=== PATIENT | female | born 1965 | race Caucasian/White ===

== ENCOUNTER 2025-02-24 13:04 | Inpatient (IN) | payer BC, SELFPAY ==
[2025-02-24] VITALS (13 sets, daily range): BP systolic 102–137; BP diastolic 68–99; BMI 29.9
--- NOTE | 2025-02-24 09:29 | ED.GENMED ---
History of Present Illness
General
Chief Complaint: Breathing Problem
Time Seen by Provider: 02/24/25 09:02
History of Present Illness
History of Present Illness:
60-year-old female presents to the emergency department for evaluation of exertional shortness of breath occurring on 2 separate occasions this morning. States she was simply walking down the hough in her home when the symptoms began. No associated
chest pain. States she had a similar event approximately 3 weeks ago but felt this was most likely due to humidity. No fevers or chills. No recent weight loss. No leg swelling or calf cramping. No prior history of cardiovascular disease.
Past History
Past History
ED Past Medical History: Hypercholesterolemia, Psychiatric and Other (DVT, PE,)
ED Past Surgical History: Appendectomy and Gynecological (Hysterectomy)
Social History
Tobacco: Former smoker
Alcohol: Occasional
Personal:
Living: with family
Employment: Employed
Review of Systems
Review of Systems
Allergies reviewed?: Yes
All Other Systems: ROS reviewed and negative except as documented in HPI and ROS
Phy Exam
Physical Exam
Physical Exam:
GEN: Well appearing, NAD, WDWN
HEENT: Oral mucosa moist, no scleral icterus
Cardiac: Regular rate and rhythm, no murmurs
Lung: No respiratory distress, no tachypnea, lungs clear to auscultation bilaterally
MSK: No gross deformity or injuries, no lower extremity edema
Skin: Good color, no pallor or jaundice, no rashes
Neuro: AO x3, moves all extremities freely
Psych: Calm, cooperative
Scores
Heart Failure Risk
Heart Failure Risk Score: Not Applicable
Course
Orders/Labs/Results
Orders:
Orders
02/24/25 08:26
EKG [Electrocardiogram (*1)] Urgent
Reason for Study: Shortness of Breath
EKG- Treatment ONCE
02/24/25 09:07
CR Chest - 2 Views Urgent
Comment:
Reason For Exam: SOB
02/24/25 09:45
Complete Blood Count/With Diff Urgent
Comprehensive Metabolic Panel Urgent
NT-proBNP Urgent
Comment: ADD ON
Troponin I Urgent
02/24/25 10:39
Add On- LAB Urgent
Tests Added?: BNP
D-Dimer Urgent
PTT Urgent
Prothrombin Time Urgent
Aspirin Chewable [Low Strength Aspirin] 243 mg PO NOW STA
02/24/25 10:41
Heparin 4,000 units IV NOW STA
Nursing to Place Non Medication Order As Directed
Physician Order: PTT 6 hours after initial start of Heparin infusion
Above order entered?: Yes
02/24/25 11:00
Heparin 05011 Units/250 ml 25,000 units in 250 ml IV PER PROTOCOL
Weight to be used for heparin protocol in kilograms (kg):: 81.6
Protocol:: Cardiac Tx/Acute Coronary
PTT Goal Range to be used:: PTT 73 to 111 seconds
Order type:: Initial
INITIAL Infusion Dose (UNITS/KG/hr) & then follow protocol:: 15 units/kg/hr
Infusion Dose in UNITS/hr & then follow protocol (UNITS/hr):: 1,200
INFUSION RATE in mL/hr & then follow protocol (mL/hr):: 12
PTT less than or equal to 64 seconds:: Increase rate by 200 units/hr (+ 2 mL/hr)
PTT 64.1 to 72.9 seconds:: Increase rate by 100 units/hr (+ 1 mL/hr)
PTT 73 to 111 seconds:: Target Range. No change in rate.
PTT 111.1 to 130.9 seconds:: Decrease rate by 100 units/hr (- 1 mL/hr)
PTT 131 to 199.9 seconds:: HOLD for 1 hr. Then decrease rate by 200 units/hr (- 2 mL/hr)
PTT greater than or equal to 200 seconds:: HOLD for 2 hrs & Notify Provider. Then decrease by 200 units/hr (-
2 mL/hr)
Lab follow-up:: Each change, PTT q6h until 2 consecutive are therapeutic. Then PTT
daily.
02/24/25 11:32
CT Chest PE Study Urgent
Comment:
Reason For Exam: SOB elevated d dimer
02/24/25 11:45
Heparin 2,500 units IV ONCE ONE
02/24/25 11:53
Echo 2D MMode Color/Doppler Stat
Reason for Study: saddle PE
02/24/25 12:11
Heparin 6,500 units IV PRN PRN
02/24/25 12:12
Heparin 3,300 units IV PRN PRN
02/24/25 12:15
Heparin 30763 Units/250 ml 25,000 units in 250 ml IV PER PROTOCOL
Weight to be used for heparin protocol in kilograms (kg):: 81.6
Protocol:: DVT/PE
PTT Goal Range to be used:: PTT 73 to 111 seconds
Order type:: Initial
INITIAL Infusion Dose (UNITS/KG/hr) & then follow protocol:: 18 units/kg/hr
Infusion Dose in UNITS/hr & then follow protocol (UNITS/hr):: 1,500
INFUSION RATE in mL/hr & then follow protocol (mL/hr):: 15
For DVT/PE algorithm, re-bolus for low PTT?: Yes
PTT less than or equal to 64 seconds:: Re-bolus 80 units/kg (max 10,000units). Increase by 300 units/hr
(+ 3mL/hr)
PTT 64.1 to 72.9 seconds:: Re-bolus 40 units/kg (max 5,000 units). Increase by 200 units/hr
(+ 2mL/hr)
PTT 73 to 111 seconds:: Target Range. No change in rate.
PTT 111.1 to 130.9 seconds:: Decrease rate by 200 units/hr (- 2 mL/hr)
PTT 131 to 199.9 seconds:: HOLD for 1 hr. Then decrease by 200 units/hr (- 2mL/hr)
PTT greater than or equal to 200 seconds:: HOLD for 2 hrs & Notify Provider. Then decrease by 300 units/hr
(- 3mL/hr)
Lab follow-up:: Each change, PTT q6h until 2 consecutive are therapeutic. Then
PTT daily.
02/24/25 12:36
Admit/Transfer Patient As Directed
Co-Sign Provider:
Level of Care: Inpatient admission
Assign to:: IMU- Intermediate Care
Physician / Group: [email or web address]
Diagnosis: acute PE
Reason for Hospitalization: acute PE
Expected length of stay greater than two midnights?: Yes
ELOS- Estimated Length of Stay in days: 3
I certify the patient meets the requirements for IP care: Yes
02/24/25 12:37
Code Status As Directed
Resuscitation Status: Full Code
02/24/25 17:00
PTT Routine
Abnormal Lab Results
02/24/25 02/24/25
09:45 10:39
Absolute Neuts (auto) 7.0 H 10^3/uL
(1.4-6.5)
Absolute Lymphs (auto) 0.8 L 10^3/uL
(1.2-3.4)
Neutrophils % 83.2 H %
(42.2-75.2)
Lymphocytes % 10.0 L %
(20.5-51.1)
D-Dimer 15.69 H ug/mlFEU
(0.00-0.50)
Chloride 108 H mmol/L
(98-107)
BUN 25 H mg/dl
(7-17)
Glucose 107 H mg/dl
(70-99)
Troponin I 0.117 H* ng/ml
02/24/25 09:45
02/24/25 09:45
Vital Signs
Initial and Last Documented VS:
Initial Vital Signs
Temp Pulse Resp BP Pulse Ox
97.6 F 84 18 137/99 100
02/24/25 08:27 02/24/25 08:27 02/24/25 08:27 02/24/25 08:27 02/24/25 08:27
Last Documented Vital Signs
Temp Pulse Resp BP Pulse Ox
97.6 F 79 12 135/92 98
02/24/25 08:27 02/24/25 12:05 02/24/25 12:05 02/24/25 12:05 02/24/25 12:05
MDM/Problems Addressed
MDM/Problems Addressed:
60-year-old female presenting with exertional shortness of breath intermittently, on initial workup, have unremarkable EKG however significantly elevated troponin at 0.177. Given her prior history of PE we obtained a D-dimer which was markedly
elevated. Patient was promptly started on heparin and sent for PE study which confirmed the diagnosis of a saddle pulmonary embolism. Interventional radiology, pulmonary, and hospitalist were consulted and given that the patient is quite stable
clinically she is not likely going to require thrombectomy or thrombolysis. A stat echocardiogram was obtained in the ED showing preserved RV function, thus the patient is suitable for continued conservative management at this point. Will be
admitted to the hospitalist service for further management
Comment
Comment:
EKG independently interpreted by me shows normal sinus rhythm at a rate of [address] changes suspicious for ischemia, comparable to prior EKG from 2017
*Pulse Oximetry
SaO2: 100
Oxygen Mode of Delivery: Room air
Patient hypoxic: no
*Critical Care Note
Total Time (30-74mins, 75-104mins- exclusive of procedures): 45 minutes
comment:
Critical care time: 45-minute
Critical care time was exclusive of: Separately billable procedures, treating other patients, and teaching time
Critical care was necessary to treat or prevent imminent or life-threatening deterioration of the following conditions: Saddle pulmonary embolism
Critical care time spent personally by me on the following activities:
[x] Review of old charts
[x] Obtaining history from patient or surrogate
[x] Ordering and review of the laboratory studies
[x] Ordering and review of radiographic studies
[x] Ordering and performing treatments and interventions
[x] Patient patient's response to treatment
[x] Development of treatment plan with patient or surrogate
ED Attending Note
-
Portions of this chart may have been created with voice recognition software.� Occasional wrong word or��sound alike� substitutions may have occurred due to the inherent limitations of voice recognition software.
Discharge Plan
Departure
Patient Disposition: Admit
Date of Disposition: 02/24/25
Time of Disposition: 12:23
Admit to: IMU
Presentation/result/management discussed w/ accepting MD/DO: Hospitalist
Discharge Problem:
Acute saddle pulmonary embolism
Interventions
Interventions:
*Risk Screen - Suicide Last Done: 02/24/25 08:27
*General Assessment Last Done: 02/24/25 10:15
*Neglect/Abuse Screening Last Done: 02/24/25 08:27
ED- Cardiac Assessment Last Done: 02/24/25 10:15
ED- Pulmonary Assessment Last Done: 02/24/25 10:15
[2025-02-24 09:57] LABS: Hematocrit 44.1 % (37.0-47.0); Hemoglobin 14.8 g/dL (12.0-16.0); Mean Corp Hgb Conc. 33.6 g/dL (33.0-37.0); Mean Corpuscular Volume 89.8 fL (81.0-99.0); Nucleated Red Blood Cells % 0 %; Platelet Count 141 10^3/uL (130-400); Red Cell Dist. Width 12.8 % (11.5-14.5)
[2025-02-24 10:11] LABS: ALT (SGPT) 24 U/L (0-35); AST (SGOT) 25 U/L (14-36); Albumin 4.5 g/dl (3.5-5.0); Alkaline Phosphatase 62 U/L (38-126); Blood Urea Nitrogen 25 mg/dl (7-17); Calcium 9.8 mg/dl (8.4-10.2); Carbon Dioxide 26 mmol/L (22-30); Chloride 108 mmol/L (98-107); Glucose 107 mg/dl (70-99); Potassium 4.2 mmol/L (3.5-5.1); Sodium 140 mmol/L (135-145); Total Protein 6.9 g/dl (6.3-8.2); eGFR > 60.00
[2025-02-24 10:32] LABS: Troponin I 0.117 ng/ml
[2025-02-24] MEDS: LOW STRENGTH ASPIRIN 243 MG PO (10:43)
[2025-02-24] MEDS: HEPARIN 25000 UNITS/250 ML IV ×2 (10:59→12:12)
[2025-02-24] MEDS: HEPARIN 4000 UNITS IV (10:59)
[2025-02-24 11:05] LABS: APTT 28.9 Sec (23.4-35.0); INR 1.03; PT 13.8 Sec (11.4-14.6)
[2025-02-24 11:15] LABS: D-Dimer 15.69 ug/mlFEU (0.00-0.50)
--- NOTE | 2025-02-24 11:51 | ED TECH ---
PERT ALERT called at 1150 per HALLEY Mock.
[2025-02-24] MEDS: HEPARIN 2500 UNITS IV (11:59)
--- NOTE | 2025-02-24 12:32 | HPS.HSE ---
Family Physician
-
Family Physician: Odalys Wolfe
Chief Complaint
-
SoB
History of Present Illness
HPI
60F HX DVT/PE , on on ASA seen at ER
- evaluation of exertional shortness of breath occurring on 2 separate occasions this morning. while simply walking down the hough in her home when the symptoms began.
- No associated chest pain.
- similar event approximately 3 weeks ago but felt this was most likely due to humidity.
- No recent acute illness, recent surgery, not on hormonal pills
HX DVT and PE 20 yrs ago following immobility from strain ankle. Treated with warfarin
Unremarkable w/u for hypercoagulability state at that time
ROS
No fevers or chills. No recent weight loss.
No leg swelling or calf cramping. .
Medical History
Past Medical History
Past Medical History: Reports Hypercholesterolemia and Psychiatric (anxiety/ depression on clonazepam and sertraline )
Past Surgical History: Reports Appendectomy and Gynocological
Social History
Tobacco: Former Smoker
Alcohol: Occasional
Family History
Family History: Not pertinent
Allergies / Home Medications
Allergies reflects when Allergies were last updated in [employer].
Home Medications with original date entered in [employer]
Allergy/Medication List:
Allergies
Allergy/AdvReac Type Severity Reaction Status Date / Time
No Known Allergies Allergy Verified 02/24/25 08:27
Home Medications
aspirin 81 mg tablet,delayed release 81 mg PO DAILYPRN PRN chest pains 07/27/15
sertraline 100 mg tablet 150 mg PO HS 07/27/15
acetaminophen 325 mg tablet (Tylenol) 650 mg PO Q6HPRN PRN mild pain 02/24/25
clonazepam 0.25 mg disintegrating tablet 0.25 mg PO BIDPRN PRN anxiety 02/24/25
digestive enzymes 1 cap PO AC 02/24/25
pantoprazole 20 mg tablet,delayed release (Protonix) 20 mg PO DAILY 02/24/25
Review of Systems
-
Constitutional: Reports No Symptoms
EENT: Reports No Symptoms and See HPI
Cardiac: Reports No Symptoms
Abdomen/GI: Reports No Symptoms
: Reports No Symptoms
Musculoskeletal: Reports No Symptoms
Skin: Reports No Symptoms
Neurological: Reports No Symptoms
Endocrine: Reports No Symptoms
Hematologic/Lymphatic: Reports No Symptoms
Psych: Reports No Symptoms
Physical Exam
Vital Signs
Vital Signs
Temp Pulse Resp BP Pulse Ox
97.6 F 79 12 135/92 98
02/24/25 08:27 02/24/25 12:05 02/24/25 12:05 02/24/25 12:05 02/24/25 12:05
Physical Exam
General: Well Developed, Well Nourished and No Apparent Distress
HEENT: NormoCephalic, Moist mucous membranes and Atraumatic
Respiratory: Clear
Cardiac: S1/S2 and Regular Rhythm; No Murmur or Rub
GI: Soft, Non Tender, Non Distended and Normal Bowel Sounds; No Organomegaly
Rectal: Deferred by Provider
Musculoskeletal: No Clubbing, No Cyanosis and No Edema
Skin: No Rash
Neuro: Nonfocal/grossly intact
Laboratory Results
-
02/24/25 09:45
02/24/25 09:45
Laboratory Results
PT 13.8 Sec (11.4-14.6) 02/24/25 10:39
INR 1.03 02/24/25 10:39
APTT 28.9 Sec (23.4-35.0) 02/24/25 10:39
Total Bilirubin 0.6 mg/dl (0.2-1.3) 02/24/25 09:45
AST 25 U/L (14-36) 02/24/25 09:45
ALT 24 U/L (0-35) 02/24/25 09:45
Alkaline Phosphatase 62 U/L (38-126) 02/24/25 09:45
Troponin I 0.117 ng/ml H* 02/24/25 09:45
Data Reviewed
-
CT Scan: Report Reviewed by me
Lab Data: Labs Reviewed by me
Impression/Plan
-
Vital Signs
Temp Pulse Resp BP Pulse Ox
97.6 F 79 12 135/92 98
02/24/25 08:27 02/24/25 12:05 02/24/25 12:05 02/24/25 12:05 02/24/25 12:05
Relevant data
Unremarkable CBC
Nl Cr and eGFR
TPNI 0.117
pBNP 86
CT Chest PE Study
- Positive for pulmonary embolism with large clot burden including linear saddle embolism.
- Pulmonary artery branching order level of the most proximal pulmonary embolism: Pulmonary artery bifurcation.
- Evidence of right ventricular heart strain, with an RV to LV ratio is 1.2 and distention of the main pulmonary artery.
EKG
NORMAL SINUS RHYTHM
POSSIBLE LEFT ATRIAL ENLARGEMENT
LOW VOLTAGE QRS
NONSPECIFIC T WAVE ABNORMALITY
ABNORMAL ECG
WHEN COMPARED WITH ECG OF 19-JAN-2017 23:32,
NO SIGNIFICANT CHANGE WAS FOUN
Pending ECHO
NO PRIOR hospitalist admission:
ASSESSMENT & PLAN
Pending Rx reconciliation
Acute saddle PE -unprovoked ?
Hemodynamically stable
- No recent acute illness, recent surgery, not on hormonal pills
- HX DVT and PE 20 yrs ago following immobility from strain ankle. Treated with warfarin
- Unremarkable w/u for hypercoagulability state at that time
- IR and Pul aware, bedside TTE to determine if lysis is indicated
- c/w Heparin gtt
- c/w AEROSOL SUPERVISOR ASA
- T & S
- Consulted to Pul and IR by SHARRI
Elevated TPNI
- likely due to NIMI due to saddle PE
- Trend TPNI
HLD but
- statin is not listed as OP meds
GERD
- start PO PPI
Anxiety/depression
- stable
- on Clonazepam and Sertraline
DVT Px: Heparin gtt
Full code
IMU
--- NOTE | 2025-02-24 15:27 | PTCARENOTE ---
Pt received from ED on stretcher. NSR on tele monitor. VSS. Heparin gtt infusing as ordered. at bedside, updated on plan of care. Pt able to make needs known, call puga within reach.
--- NOTE | 2025-02-24 16:11 | CON.PUL ---
Consultation
Consultation Request
Date/Time Consultation Requested: 02/24/2025 - 151
Date/Time Consultation Performed: 02/24/2025 - 160
Requesting Provider: Dr. Cruz
Performing Provider: Dr. Rudd
Reason for Consultation: Acute saddle PE
Medical History
-
Chief Complaint: SOB
History of Present Illness:
60-year-old female with a past medical history of DVT/PE (2004), anxiety/depression, and hypercholesterolemia who presents with sudden SOB. She was at home and she developed sudden SOB with difficulty taking a deep breath; also developed nausea.
SOB started at around 7 AM today. About 5-6 weeks ago, she had pain on the backside of her knee which went up towards the back of her thigh, and she saw her orthopedics who administered a cortisone shot which resolved this pain. She did have a
prior DVT which was diagnosed as a provoked clot after patient was immobile from a broken ankle requiring a cast. This then led to an acute pulmonary embolism. She was on Coumadin for 6 months and then transitioned to low-dose aspirin which she
was taken off after a few years. She did see hematology in the past with Dr. Ashley Chakraborty in [place], and prior hypercoagulable workup was reportedly negative, per the patient. In the ER, patient was afebrile with pulse rate 84, respiratory
rate 18, BP 137/99 and saturating 100% on room air. Labs showed a D-dimer of 15.69 with a troponin of 0.117. CXR showed no acute cardiopulmonary abnormality. CTA chest showed an acute saddle pulmonary embolism with large clot burden. Also
evidence of RV strain. PERT alert was called, and patient was not considered a candidate for catheter directed thrombolysis or embolectomy after discussion with IR and harness brusher. She was given aspirin in the ER, and then started on heparin
infusion. Patient admitted to the hospitalist service and pulmonary service now consulted for additional management/recommendations.
When I saw the patient, she was resting in bed in no acute distress. BP 114/68, heart rate 73 and saturating 97% on room air. Patient's , Mikal, is present at bedside. Patient currently denies feeling SOB or chest pain, TRAVIS, nausea, fevers
or chills.
PMHx: Hypercholesterolemia, anxiety/depression, history of DVT/PE (2004 after broken left ankle with immobility from cast) treated with Coumadin x 6 months
PSHx: Appendectomy
Past Medical History
Past Medical History: Other (Above as per HPI)
Past Surgical History: Other (Above as per HPI)
Social History
Tobacco: Former Smoker
Alcohol: Occasional
Drug: None
Personal:
Living: With Family (: Mikal)
Family History
Family History: Reviewed & Not Pertinent
Allergies / Home Medications
Allergies
Allergy/AdvReac Type Severity Reaction Status Date / Time
No Known Allergies Allergy Verified 02/24/25 08:27
Home Medications
�Medication �Instructions �Recorded �Confirmed �Last Taken �Type
aspirin 81 mg tablet,delayed 81 mg PO DAILYPRN PRN chest pains 07/27/15 02/24/25 02/24/25 History
release
sertraline 100 mg tablet 150 mg PO HS 07/27/15 02/24/25 02/23/25 History
acetaminophen 325 mg tablet 650 mg PO Q6HPRN PRN mild pain 02/24/25 02/24/25 02/23/25 History
(Tylenol)
clonazepam 0.25 mg disintegrating 0.25 mg PO BIDPRN PRN anxiety 02/24/25 02/24/25 02/24/25 History
tablet
digestive enzymes 1 cap PO AC 02/24/25 02/24/25 02/23/25 History
pantoprazole 20 mg tablet,delayed 20 mg PO DAILY 02/24/25 02/24/25 02/24/25 History
release (Protonix)
Review of Systems
-
History Source: Patient
All other systems: Negative unless noted (12 point ROS performed and is negative unless mentioned above.)
Vitals / Labs / Diagnostic Testing
Vital Signs
Temp Pulse Resp BP Pulse Ox
97.6 F 73 13 105/82 97
02/24/25 08:27 02/24/25 18:30 02/24/25 18:30 02/24/25 18:00 02/24/25 18:30
Lab Data
02/24/25 09:45
02/24/25 09:45
Laboratory Results
02/24/25 02/24/25
10:39 16:36
PT 13.8
INR 1.03
APTT 28.9 > 200 H*
Diagnostic Testing:
Physical Exam
-
HEENT: Normocephalic and Anicteric
Cardiovascular: S1/S2 and Peripheral Edema (negative)
Respiratory: Wheeze (negative), Rales (negative), Rhonchi (negative) and Non-Labored Respirations
GI: Soft, Non Distended, Non Tender and Normal Bowel Sounds
Neurology: AO x 3 and Tremors (negative)
Skin: Warm and Dry
General: Respiratory Distress (negative), Comfortable, Fever (negative) and Chills (negative)
Assessment
-
Assessment: 60-year-old female with a past medical history of DVT/PE (2004), anxiety/depression, and hypercholesterolemia who presents with sudden SOB. She was at home and she developed sudden SOB with difficulty taking a deep breath; also
developed nausea. SOB started at around 7 AM today. About 5-6 weeks ago, she had pain on the backside of her knee which went up towards the back of her thigh, and she saw her orthopedics who administered a cortisone shot which resolved this pain.
She did have a prior DVT which was diagnosed as a provoked clot after patient was immobile from a broken ankle requiring a cast. This then led to an acute pulmonary embolism. She was on Coumadin for 6 months and then transitioned to low-dose
aspirin which she was taken off after a few years. She did see hematology in the past with Dr. Ashley Chakraborty in [place], and prior hypercoagulable workup was reportedly negative, per the patient. In the ER, patient was afebrile with pulse
rate 84, respiratory rate 18, BP 137/99 and saturating 100% on room air. Labs showed a D-dimer of 15.69 with a troponin of 0.117. CXR showed no acute cardiopulmonary abnormality. CTA chest showed an acute saddle pulmonary embolism with large clot
burden. Also evidence of RV strain. PERT alert was called, and patient was not considered a candidate for catheter directed thrombolysis or embolectomy after discussion with IR and harness brusher. She was given aspirin in the ER, and then started
on heparin infusion. Patient admitted to the hospitalist service and pulmonary service now consulted for additional management/recommendations.
Chronic conditions [employer]: Hypercholesterolemia, anxiety/depression, history of DVT/PE (2004 after broken left ankle with immobility from cast) treated with Coumadin x 6 months
Impression:
#Acute saddle PE with RV strain - PESI score: 60 = class I, very low risk of 30-day mortality (0 - 1.6%)
#Elevated troponin due to above
#History of DVT/PE (occurred in 2004 per patient after suffering a left-sided broken ankle)
#History of 'abdominal clot' (?mesenteric thrombus)
#Hypercholesterolemia
#Anxiety/depression
Plan:
- Continue with systemic anticoagulation, currently with heparin drip
- Echo showed mild pulmonary hypertension with PASP 35-37 mmHg with preserved RV systolic function
- Check lower extremity duplex to assess for DVT
- Recommend bedrest for the first 24 hours
- Given that patient's RV has preserved systolic function, she remains normotensive and is on room air, agree that patient should do well with anticoagulation alone without catheter directed thrombolysis versus embolectomy
- Continue trending troponin until it begins to downtrend
- Recommend outpatient hematology evaluation for hypercoagulable workup and to assist for proper duration of AC; given that this is the patient's second VTE event and that this is a saddle PE, suspect that she will require lifelong AC going forward
- Of note, patient says she is up-to-date with her mammogram + colonoscopy (last mammogram was last year which showed no evidence of breast cancer, and colonoscopy was within the last 5-10 years and she was not recommended to have another one for
another 10 years)
- Maintain SpO2 >90-94% with supplemental O2 as needed
- prn nebulized bronchodilators - not currently bronchospastic
- Incentive spirometer encouraged q1hr while awake
- Replete electrolytes with K>4, Mg>2
- Trend H/H and transfuse if needed to keep Hb>7g/dL; keep plt>20k, unless there is concern for bleeding then keep plt>50k
- Maintain euglycemia with goal BG >100 and <180
- DVT ppx: Currently on heparin drip
Code status: Full code
Pulmonary service will continue to follow along. Outpatient pulmonary office follow-up will be arranged.
Data:
CTA chest 02/24/2025:
Positive for pulmonary embolism with large clot burden including linear saddle embolism.
Pulmonary artery branching order level of the most proximal pulmonary embolism: Pulmonary artery bifurcation.
Evidence of right ventricular heart strain, with an RV to LV ratio is 1.2 and distention of the main pulmonary artery.
Total time spent today was 61 minutes for this encounter. Time includes reviewing laboratory test/imaging results, reviewing pertinent medical records, obtaining and reviewing medical history, performing an appropriate exam, ordering medications,
tests and procedures. Time also includes documentation of this encounter, coordinating patient care and communicating with other healthcare professionals. Total time does not include separately billed tests performed on this date of service.
[2025-02-24 17:15] LABS: APTT > 200 Sec (23.4-35.0)
[2025-02-24 17:22] LABS: Troponin I 0.283 ng/ml
[2025-02-24] MEDS: ZOLOFT 150 MG PO (19:55)
--- NOTE | 2025-02-24 23:18 | PTCARENOTE ---
Pt aaox3, able to make needs known. Assist x1 to BSC, slightly PATEL. No c/o pain. Lungs diminished B/L. SaO2 94% on RA. Heparin gtt running at 12ml/hr. Next PTT to be drawn at 01:15. VSS, call puga and belongings within reach, care ongoing.
[2025-02-25] VITALS (11 sets, daily range): BP systolic 93–129; BP diastolic 63–85
[2025-02-25 02:04] LABS: APTT 128.8 Sec (23.4-35.0)
[2025-02-25 02:13] LABS: Troponin I 0.130 ng/ml
[2025-02-25 08:49] LABS: Hematocrit 47.6 % (37.0-47.0); Hemoglobin 15.9 g/dL (12.0-16.0); Mean Corp Hgb Conc. 33.4 g/dL (33.0-37.0); Mean Corpuscular Volume 90.3 fL (81.0-99.0); Platelet Count 145 10^3/uL (130-400); Red Cell Dist. Width 13.0 % (11.5-14.5)
[2025-02-25 08:56] LABS: APTT 71.8 Sec (23.4-35.0)
[2025-02-25] MEDS: KLONOPIN 0.25 MG PO (09:02)
[2025-02-25] MEDS: PROTONIX 40 MG PO (09:03)
[2025-02-25 09:12] LABS: ALT (SGPT) 24 U/L (0-35); AST (SGOT) 25 U/L (14-36); Albumin 4.7 g/dl (3.5-5.0); Alkaline Phosphatase 60 U/L (38-126); Blood Urea Nitrogen 19 mg/dl (7-17); Calcium 10.2 mg/dl (8.4-10.2); Carbon Dioxide 27 mmol/L (22-30); Chloride 108 mmol/L (98-107); Estimated Creatinine Clearance 90 ml/min; Glucose 108 mg/dl (70-99); Potassium 4.0 mmol/L (3.5-5.1); Sodium 141 mmol/L (135-145); Total Protein 7.5 g/dl (6.3-8.2); eGFR > 60.00
--- NOTE | 2025-02-25 09:12 | PTCARENOTE ---
Pt's ptt results received, notified. Awaiting further orders.
[2025-02-25] MEDS: HEPARIN 25000 UNITS/250 ML IV (09:42)
--- NOTE | 2025-02-25 09:44 | W.PN.PUL3 ---
Addendum entered and electronically signed by Albert Rudd MD 02/25/25 13:41:
Physical Exam
-
HEENT: Normocephalic and Anicteric
Cardiovascular: S1/S2 and Peripheral Edema (LLE trace edema)
Respiratory: Wheeze (negative), Rales (negative), Rhonchi (negative) and Non-Labored Respirations
GI: Soft, Non Distended, Non Tender and Normal Bowel Sounds
Neurology: AO x 3 and Tremors (negative)
Skin: Warm and Dry; slight discoloration of LLE which is minimally flushed, and also trace LLE edema compared to right leg
General: Respiratory Distress (negative), Comfortable, Fever (negative) and Chills (negative)
Original Note:
Today's Communication / Plan
-
Continue with parenteral systemic anticoagulation
Eventual transition to NOAC, preferably Eliquis
Given that she has recurrent LLE DVT, assess for May Thurner syndrome with CT venogram
If significant iliocaval thrombosis is found, consult IR vs vascular surgery for eval for lytic therapy; if significant iliocaval stenosis is seen, consult vascular surgery for eval for angioplasty
Bed respiratory 24 hours
Pain control
Anxiolytics as needed
Outpatient pulmonary office follow-up for full PFTs
Pulmonary service will continue to follow along
Assessment
-
Assessment: 60-year-old female with a past medical history of DVT/PE (2004), anxiety/depression, and hypercholesterolemia who presents with sudden SOB. She was at home and she developed sudden SOB with difficulty taking a deep breath; also
developed nausea. SOB started at around 7 AM today. About 5-6 weeks ago, she had pain on the backside of her knee which went up towards the back of her thigh, and she saw her orthopedics who administered a cortisone shot which resolved this pain.
She did have a prior DVT which was diagnosed as a provoked clot after patient was immobile from a broken ankle requiring a cast. This then led to an acute pulmonary embolism. She was on Coumadin for 6 months and then transitioned to low-dose
aspirin which she was taken off after a few years. She did see hematology in the past with Dr. Ashley Chakraborty in [place], and prior hypercoagulable workup was reportedly negative, per the patient. In the ER, patient was afebrile with pulse
rate 84, respiratory rate 18, BP 137/99 and saturating 100% on room air. Labs showed a D-dimer of 15.69 with a troponin of 0.117. CXR showed no acute cardiopulmonary abnormality. CTA chest showed an acute saddle pulmonary embolism with large clot
burden. Also evidence of RV strain. PERT alert was called, and patient was not considered a candidate for catheter directed thrombolysis or embolectomy after discussion with IR and natural remedy consultant. She was given aspirin in the ER, and then started
on heparin infusion. Patient admitted to the hospitalist service and pulmonary service now consulted for additional management/recommendations.
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
Impression:
#Acute saddle PE with RV strain - PESI score: 60 = class I, very low risk of 30-day mortality (0 - 1.6%)
#Elevated troponin due to above
#LLE DVT
#History of DVT/PE (occurred in 2004 per patient after suffering a left-sided broken ankle)
#History of 'abdominal clot' (?mesenteric thrombus)
#Hypercholesterolemia
#Anxiety/depression
Plan:
- Continue with systemic anticoagulation, currently with heparin drip
- Echo showed mild pulmonary hypertension with PASP 35-37 mmHg with preserved RV systolic function
- LLE duplex US on 02/25/2025 shows a nonocclusive thrombus in the left CFV down to the popliteal veins. Occlusive thrombus seen in the left peroneal + PT veins. No clot seen in the left superficial femoral vein.
- She does have left lower extremity swelling but it is not significantly painful, and there is some discoloration to her left lower extremity but there is no flushing or cyanosis seen
- Given that she has a unilateral LLE DVT which is recurrent, and she has pain despite being on AC with some skin discoloration, there is concern for MTS --> recommend CT venogram
- If MTS is seen, the treatment will depend if there is a thrombus in the iliocaval system vs stenosis, and depending on patients continued symptoms as she is relatively asymptomatic currently
- Recommend bedrest for the first 24 hours
- Given that patient's RV has preserved systolic function, she remains normotensive and is on room air, agree that patient should do well with anticoagulation alone without catheter directed thrombolysis versus embolectomy of her PE
- Troponin has peaked at 0.283 on 02/24/2025, no longer need to continue trending at this time
- Recommend outpatient hematology evaluation for hypercoagulable workup and to assist for proper duration of AC; given that this is the patient's second VTE event and that this is a saddle PE, suspect that she will require lifelong AC going forward
- Of note, patient says she is up-to-date with her mammogram + colonoscopy (last mammogram was last year which showed no evidence of breast cancer, and colonoscopy was within the last 5-10 years and she was not recommended to have another one for
another 10 years)
- Maintain SpO2 >90-94% with supplemental O2 as needed
- prn nebulized bronchodilators - not currently bronchospastic
- Incentive spirometer encouraged q1hr while awake
- Replete electrolytes with K>4, Mg>2
- Trend H/H and transfuse if needed to keep Hb>7g/dL; keep plt>20k, unless there is concern for bleeding then keep plt>50k
- Maintain euglycemia with goal BG >100 and <180
- DVT ppx: Currently on heparin drip --> plan to transition to Eliquis tomorrow, although we will first need to evaluate for iliocaval thrombosis vs stenosis (see above)
Code status: Full code
Pulmonary service will continue to follow along. Outpatient pulmonary office follow-up will be arranged.
Data:
CTA chest 02/24/2025:
Positive for pulmonary embolism with large clot burden including linear saddle embolism.
Pulmonary artery branching order level of the most proximal pulmonary embolism: Pulmonary artery bifurcation.
Evidence of right ventricular heart strain, with an RV to LV ratio is 1.2 and distention of the main pulmonary artery.
Total time spent today was 41 minutes for this encounter. Time includes reviewing laboratory test/imaging results, reviewing pertinent medical records, obtaining and reviewing medical history, performing an appropriate exam, ordering medications,
tests and procedures. Time also includes documentation of this encounter, coordinating patient care and communicating with other healthcare professionals. Total time does not include separately billed tests performed on this date of service.
Subjective Data
-
Date of Service:
Date of Service: February 25, 2025
Chief Complaint: Pulmonary Follow Up
Subjective:
Patient seen this morning. Very anxious about her newly diagnosed left lower extremity DVT. She also feels that the pulmonary embolism is a 'ticking time bomb.' I was able to calm her down and explain that although she has a serious clot, she is
on room air, blood pressure stable, troponin downtrending, and the heparin drip is therapeutic and she is in the right place if things were to deteriorate, which currently things are heading in the right direction despite her having a extensive
DVT/PE.
Currently saturating 97% on room air, BP 129/80 and heart rate 70. She currently denies chest pain, denies SOB at rest, denies TRAVIS, abdominal pain, nausea, fevers or chills.
Review of Systems
General: Other (Negative unless mentioned above)
Objective Data
Data Reviewed
Vital Signs / I&O / Oxygen:
Vital Signs
Temp Pulse Resp BP Pulse Ox
98.1 F 68 14 118/83 96
02/25/25 07:20 02/25/25 06:00 02/25/25 06:00 02/25/25 06:00 02/25/25 09:20
Intake and Output
02/24/25 02/25/25 02/26/25
06:59 06:59 06:59
Intake Total 480 / 480 120 / 120
Balance 480 / 480 120 / 120
SaO2 96
Labs/Micro/Reports
Lab Data
02/25/25 08:23
02/25/25 08:23
Laboratory Results
02/24/25 02/24/25 02/25/25
10:39 16:36 01:30
PT 13.8
INR 1.03
APTT 28.9 > 200 H* 128.8 H
02/25/25
08:23
PT
INR
APTT 71.8 H
--- NOTE | 2025-02-25 09:50 | PTCARENOTE ---
Pt's PTT 71.8; per protocol pt is to receive bolus and have drip increased. D/w Dr. Brown, per MD pt is NOT to receive bolus, only increase drip at this time. See intervention.
--- NOTE | 2025-02-25 09:54 | W.PN.HOSP.TC ---
Today's Communication/Plan
-
hep gtt
CT abd/pelvis w/ contrast eval for possible May Thurner Syndrome
Monitor respiratory status
Assessment / Plan
Assessment / Plan
Physical Exam
General: Well Developed, Well Nourished and No Apparent Distress
HEENT: NormoCephalic, Moist mucous membranes and Atraumatic
Respiratory: Clear
Cardiac: S1/S2 and Regular Rhythm; No Murmur or Rub
GI: Soft, Non Tender, Non Distended and Normal Bowel Sounds; No Organomegaly
Rectal: Deferred by Provider
Musculoskeletal: No Clubbing, No Cyanosis and No Edema, LLE calf slightly larger than RLE but no tenderness
Skin: No Rash
Neuro: AOx3 conversant coherent
60F w/ remote hx DVT/PE provoked from immobility d/t ankle strain treated with wafarin, neg hypercoagulable work up at the time, here for PE and extensive DVT LLE.
Acute saddle PE
LLE ext DVT appreciated on Venous Duplex
Hemodynamically stable
- No recent acute illness, recent surgery, not on hormonal pills
- HX DVT and PE 20 yrs ago following immobility from strain ankle. Treated with warfarin
- Unremarkable w/u for hypercoagulability state at that time
- ECHO appreciated EF 60-65% no significant valve abn's
- c/w Heparin gtt
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
- Check CT abd/pelvs w/ contrast for possible May Thurner Syndrome
-Pulm eval appreciated
Elevated TPNI
- likely due to NIMI due to saddle PE
- trended to peak 0.283
reported Hx HLD not on statin
GERD
- cont PPI
Anxiety/depression
- stable
- on Clonazepam and Sertraline
DVT Px: Heparin gtt
Full code
IMU
Discussed with patient and patient's Mikal
I spent a total of 50 minutes with the patient or on the floor. More than 50% of this time involved counseling and coordination of care.
Anticipated Discharge: > 48 hours
Subjective/Interval History
-
Date of Service: February 25, 2025
No acute distress, overall reports feeling well. Denies new acute issues at this time. Reports significant improvement in breathing sob.
Objective Data
-
Labs:
Laboratory Results
02/25/25 02/25/25 02/25/25
01:30 08:23 15:45
WBC 6.6
Hgb 15.9
Hct 47.6 H
Plt Count 145
APTT 128.8 H 71.8 H Pending
Sodium 141
Potassium 4.0
Chloride 108 H
Carbon Dioxide 27
BUN 19 H
Creatinine 0.7
Glucose 108 H
Calcium 10.2
Total Bilirubin 0.8
AST 25
ALT 24
Alkaline Phosphatase 60
Vital Signs:
Vital Signs
Temp Pulse Resp BP Pulse Ox
98.1 F 68 14 118/83 96
02/25/25 07:20 02/25/25 06:00 02/25/25 06:00 02/25/25 06:00 02/25/25 09:20
I&O
02/24/25 02/25/25 02/26/25
06:59 06:59 06:59
Intake Total 480 / 480 120 / 120
Balance 480 / 480 120 / 120
--- NOTE | 2025-02-25 15:04 | PTCARENOTE ---
Pt's assessment as documented. Aox3, very tearful and anxious throughout the day. Emotional support provided. Pastoral care offered twice, pt states she will keep that in mind. Updated on plan of care. Heparin gtt adjustments as documented. Ringing
appropriately, call puga within reach.
--- NOTE | 2025-02-25 16:11 | CM ---
Patient with Dx Acute saddle PE, LLE DVT. Room air. Receiving Heparin gtt.
Met with patient who resides with her in a 1 story house with 3 outside steps.
The patient was independent in ADLs and ambulation.
She was active, works & drives.
DME in house/not using- RW, S[employer], commode
No prior VN
Remote SNF, can't remember facility
PCP - Odalys Wolfe
Pharmacy - [facility]
CM Consult; connolly check starter pack Eliquis
Per pharmacist at [facility], will need prior auth ---> message sent to Dr Brown.
CM continuing to follow.
Plan home.
--- NOTE | 2025-02-25 16:41 | PTCARENOTE ---
Addendum entered by Chrystal Garcia 02/25/25 16:54:
Labs obtained by MEDIATOR and sent to lab.
Original Note:
Multiple attempts made to draw [phone] PTT unsuccessful. IVT RN at bedside attempting to obtain lab.
[2025-02-25 17:09] LABS: APTT 111.7 Sec (23.4-35.0)
[2025-02-25] MEDS: NON-FORMULARY ITEM 1 CAP PO (17:57)
[2025-02-25] MEDS: ZOLOFT 150 MG PO (20:49)
[2025-02-25 23:59] LABS: APTT 102.4 Sec (23.4-35.0)
[2025-02-26] VITALS (13 sets, daily range): BP systolic 83–126; BP diastolic 54–84
--- NOTE | 2025-02-26 03:52 | PTCARENOTE ---
Pt aaox3, able to make needs known. remains on heparin gtt, currently running at 10ml/hr. Next PTT @0600. VSS, call puga and belongings within reach, care ongoing.
[2025-02-26 06:42] LABS: Hematocrit 50.5 % (37.0-47.0); Hemoglobin 16.8 g/dL (12.0-16.0); Mean Corp Hgb Conc. 33.3 g/dL (33.0-37.0); Mean Corpuscular Volume 90.3 fL (81.0-99.0); Platelet Count 170 10^3/uL (130-400); Red Cell Dist. Width 12.8 % (11.5-14.5)
[2025-02-26 06:45] LABS: APTT 66.3 Sec (23.4-35.0)
[2025-02-26] MEDS: HEPARIN 3300 UNITS IV (07:20)
[2025-02-26] MEDS: HEPARIN 25000 UNITS/250 ML IV (07:27)
--- NOTE | 2025-02-26 08:13 | PTCARENOTE ---
Pt AAOx3 Heparin ow at 12 ml/hr awaiting CT scan, pt blood hemolyzed. awaiting phlebotomy
--- NOTE | 2025-02-26 08:58 | W.PN.HOSP.TC ---
Today's Communication/Plan
-
downgrade to Tele
cont monitoring following transition to Eliquis
PT/OT
likely discharge tomorrow if remains stable/cont to improve
Assessment / Plan
Assessment / Plan
Physical Exam
General: Well Developed, Well Nourished and No Apparent Distress
HEENT: NormoCephalic, Moist mucous membranes and Atraumatic
Respiratory: Clear
Cardiac: S1/S2 and Regular Rhythm; No Murmur or Rub
GI: Soft, Non Tender, Non Distended and Normal Bowel Sounds; No Organomegaly
Rectal: Deferred by Provider
Musculoskeletal: No Clubbing, No Cyanosis and No Edema, LLE calf slightly larger than RLE but no tenderness
Skin: No Rash
Neuro: AOx3 conversant coherent
60F w/ remote hx DVT/PE provoked from immobility d/t ankle strain treated with wafarin, neg hypercoagulable work up at the time, here for PE and extensive DVT LLE.
Acute saddle PE w/ possible cor pulmonale
LLE ext DVT appreciated on Venous Duplex
Hemodynamically stable
- No recent acute illness, recent surgery, not on hormonal pills
- HX DVT and PE 20 yrs ago following immobility from strain ankle. Treated with warfarin
- Unremarkable w/u for hypercoagulability state at that time
- ECHO appreciated EF 60-65% no significant valve abn's
- Heparin gtt transitioned to Eliquis
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
- CT abd/pelvs w/ contrast appreciated
- Vascular eval appreciated
- Pulm eval appreciated
-PT/OT eval requested
Elevated TPNI
- likely due to NIMI due to saddle PE
- trended to peak 0.283
-chest pain free
reported Hx HLD not on statin
GERD
- cont PPI
Anxiety/depression
- stable
- on Clonazepam and Sertraline
DVT Px: Eliquis
Full code
Stable for downgrade to Tele
Discussed with patient and patient's Mikal
I spent a total of 45 minutes with the patient or on the floor. More than 50% of this time involved counseling and coordination of care.
Anticipated Discharge: Within 24 hours
Subjective/Interval History
-
Date of Service: February 26, 2025
No acute distress, overall reports feeling well. Denies new acute issues at this time.
Objective Data
-
Labs:
Laboratory Results
02/25/25 02/26/25 02/26/25
23:35 06:22 07:58
WBC 5.8
Hgb 16.8 H
Hct 50.5 H
Plt Count 170
APTT 102.4 H 66.3 H
Sodium Cancelled Pending
Potassium Cancelled Pending
Chloride Cancelled Pending
Carbon Dioxide Cancelled Pending
BUN Cancelled Pending
Creatinine Cancelled Pending
Glucose Cancelled Pending
Calcium Cancelled Pending
02/26/25
13:00
WBC
Hgb
Hct
Plt Count
APTT Pending
Sodium
Potassium
Chloride
Carbon Dioxide
BUN
Creatinine
Glucose
Calcium
Vital Signs:
Vital Signs
Temp Pulse Resp BP Pulse Ox
98.3 F 64 14 126/76 98
02/26/25 07:44 02/26/25 08:00 02/26/25 08:00 02/26/25 08:00 02/26/25 08:00
I&O
02/25/25 02/26/25 02/27/25
06:59 06:59 06:59
Intake Total 480 / 480 120 / 120
Balance 480 / 480 120 / 120
--- NOTE | 2025-02-26 09:12 | W.PN.PUL3 ---
Today's Communication / Plan
-
Transition off heparin drip to Eliquis
Case management consult to assess affordability of NOAC
CT venogram negative for May-Thurner syndrome
Ok for pt to get up OOB today; PT/OT rec'd
Home O2 assessment tomorrow prior to discharge
Pain control
Anxiolytics as needed
Outpatient pulmonary office follow-up for full PFTs
Pt should be stable for discharge by tomorrow (02/27)
Pulmonary service will continue to follow along
Assessment
-
Assessment: 60-year-old female with a past medical history of DVT/PE (2004), anxiety/depression, and hypercholesterolemia who presents with sudden SOB. She was at home and she developed sudden SOB with difficulty taking a deep breath; also
developed nausea. SOB started at around 7 AM today. About 5-6 weeks ago, she had pain on the backside of her knee which went up towards the back of her thigh, and she saw her orthopedics who administered a cortisone shot which resolved this pain.
She did have a prior DVT which was diagnosed as a provoked clot after patient was immobile from a broken ankle requiring a cast. This then led to an acute pulmonary embolism. She was on Coumadin for 6 months and then transitioned to low-dose
aspirin which she was taken off after a few years. She did see hematology in the past with Dr. Ashley Chakraborty in [place], and prior hypercoagulable workup was reportedly negative, per the patient. In the ER, patient was afebrile with pulse
rate 84, respiratory rate 18, BP 137/99 and saturating 100% on room air. Labs showed a D-dimer of 15.69 with a troponin of 0.117. CXR showed no acute cardiopulmonary abnormality. CTA chest showed an acute saddle pulmonary embolism with large clot
burden. Also evidence of RV strain. PERT alert was called, and patient was not considered a candidate for catheter directed thrombolysis or embolectomy after discussion with IR and wireline field operator. She was given aspirin in the ER, and then started
on heparin infusion. Patient admitted to the hospitalist service and pulmonary service now consulted for additional management/recommendations.
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
Impression:
#Acute saddle PE with RV strain - PESI score: 60 = class I, very low risk of 30-day mortality (0 - 1.6%)
#Elevated troponin due to above
#LLE extensive DVT
#History of DVT/PE (occurred in 2004 per patient after suffering a left-sided broken ankle)
#History of 'abdominal clot' (?mesenteric thrombus)
#Hypercholesterolemia
#Anxiety/depression
Plan:
- Continue with systemic anticoagulation, currently with heparin drip --> transition to NOAC today with Eliquis
- Case management consult to assess affordability of Eliquis vs Xarelto
- Echo showed mild pulmonary hypertension with PASP 35-37 mmHg with preserved RV systolic function
- LLE duplex US on 02/25/2025 shows a nonocclusive thrombus in the left CFV down to the popliteal veins. Occlusive thrombus seen in the left peroneal + PT veins. No clot seen in the left superficial femoral vein.
- She does have left lower extremity swelling but it is not significantly painful, and there is some mild discoloration to her left lower extremity (now improved as of 02/26) but there is no flushing or cyanosis seen
- Given that she has a unilateral LLE DVT which is recurrent, and she has pain despite being on AC with some skin discoloration, there was concern for MTS --> CT venogram performed on 02/26/2025 showing no evidence of thrombosis in the left external
iliac or common iliac veins with mild compression of the left common iliac vein by the left common iliac artery. No report of stenosis. Hence, patient does not have May�Thurner syndrome
- Ok for pt to get up OOB as tolerated
- Consult PT/OT
- Given that patient's RV has preserved systolic function, she remains normotensive and is on room air, agree that patient should do well with anticoagulation alone without catheter directed thrombolysis versus embolectomy of her PE
- Troponin has peaked at 0.283 on 02/24/2025, no longer need to continue trending at this time
- Recommend outpatient hematology evaluation for hypercoagulable workup and to assist for proper duration of AC; given that this is the patient's second VTE event and that this is a saddle PE, suspect that she will require lifelong AC going forward
- Of note, patient says she is up-to-date with her mammogram + colonoscopy (last mammogram was last year which showed no evidence of breast cancer, and colonoscopy was within the last 5-10 years and she was not recommended to have another one for
another 10 years)
- Maintain SpO2 >90-94% with supplemental O2 as needed
- Would check home O2 assessment prior to discharge
- prn nebulized bronchodilators - not currently bronchospastic
- Incentive spirometer encouraged q1hr while awake
- Replete electrolytes with K>4, Mg>2
- Trend H/H and transfuse if needed to keep Hb>7g/dL; keep plt>20k, unless there is concern for bleeding then keep plt>50k
- Maintain euglycemia with goal BG >100 and <180
- DVT ppx: Currently on heparin drip --> transition to Eliquis today
Code status: Full code
Pt should be stable for discharge by tomorrow (02/27)
Pulmonary service will continue to follow along. Outpatient pulmonary office follow-up will be arranged for full PFTs.
Data:
CTA chest 02/24/2025:
Positive for pulmonary embolism with large clot burden including linear saddle embolism.
Pulmonary artery branching order level of the most proximal pulmonary embolism: Pulmonary artery bifurcation.
Evidence of right ventricular heart strain, with an RV to LV ratio is 1.2 and distention of the main pulmonary artery.
Total time spent today was 38 minutes for this encounter. Time includes reviewing laboratory test/imaging results, reviewing pertinent medical records, obtaining and reviewing medical history, performing an appropriate exam, ordering medications,
tests and procedures. Time also includes documentation of this encounter, coordinating patient care and communicating with other healthcare professionals. Total time does not include separately billed tests performed on this date of service.
Subjective Data
-
Date of Service:
Date of Service: February 26, 2025
Chief Complaint: Pulmonary Follow Up
Subjective:
Patient seen and evaluated today at bedside. Remains tired and anxious. Improved shortness of breath. Currently on room air saturating 93% with heart rate 84 and BP 101/77. Patient's , Mikal, present at bedside and all questions were
answered. Patient denies chest pain, TRAVIS, nausea, fevers or chills.
Review of Systems
General: Other (Negative unless mentioned above)
Objective Data
Data Reviewed
Vital Signs / I&O / Oxygen:
Vital Signs
Temp Pulse Resp BP Pulse Ox
98.3 F 64 14 126/76 98
02/26/25 07:44 02/26/25 08:00 02/26/25 08:00 02/26/25 08:00 02/26/25 08:00
Intake and Output
02/25/25 02/26/25 02/27/25
06:59 06:59 06:59
Intake Total 480 / 480 120 / 120
Balance 480 / 480 120 / 120
SaO2 98
Physical Exam
General: Respiratory Distress (negative), Comfortable, Chills (negative) and Sweats (negative)
HEENT: Normocephalic and Anicteric
Cardiovascular: S1-S2, Rub (negative) and Peripheral Edema (Trace left lower extremity edema)
Respiratory: Clear, Wheeze (negative), Crackles (negative), Rhonchi (negative) and Non-Labored Respirations
GI: Soft, Non Distended, Non Tender and Normal Bowel Sounds
Neurology: Awake, Alert, Oriented and Tremors (negative)
Skin: Warm, Dry, Cyanosis (negative) and Jaundice (negative)
Labs/Micro/Reports
Lab Data
02/26/25 06:22
Laboratory Results
02/25/25 02/25/25 02/26/25
16:42 23:35 06:22
APTT 111.7 H 102.4 H 66.3 H
--- NOTE | 2025-02-26 09:21 | PN.CDI ---
CDI
- -
CDI:
Physician Documentation Request
Admit Date: 02/24/25 13:04
Dear Doctor Stephanie,
H&P states ' CT chest PE study-Positive for pulmonary embolism with large clot burden including linear saddle embolism'
Pulmonary consultation states '...with RV strain'
Echo shows an 'estimated pulmonary artery pressure of 35-37 mmHg. Right ventricle appears mildly enlarged with overall preserved RV systolic function. Normal atrial dimensions'
Please clarify:
PE with cor pulmonale
PE without cor pulmonale
Other
Use of terms such as suspected, likely, concern for, or probable (associated with a specific diagnosis that is being evaluated, monitored, or treated as if it exists) are acceptable and can be coded in the inpatient setting, when documented at the
time of discharge.
Thank you,
Barbara Mendieta RN, BSN
CDI Specialist
tiger text
Please use your independent medical judgment in providing your response.
[2025-02-26] MEDS: NON-FORMULARY ITEM 1 CAP PO ×3 (10:05→16:04)
[2025-02-26] MEDS: PROTONIX 40 MG PO (10:05)
--- NOTE | 2025-02-26 10:51 | PTCARENOTE ---
Pt to and from ct scan OOB in chair at this time.
--- NOTE | 2025-02-26 11:14 | CON.VAS ---
Addendum entered and electronically signed by Hugo Davalos MD 02/27/25 14:36:
Seen and examined with DOUG Hurtado. Agree with findings as noted below. 60-year-old female with history of DVT in 2004 following orthopedic injury. (At that time had DVT/PE). She had had a hematologic workup she notes at that time which was
negative. She does have a significant family history of thromboembolic events. Recently she had symptoms of left distal thigh/proximal calf pain in the vicinity of the knee. She had seen her primary care doctor and was referred to an orthopedist
who performed injection which did help her pain some. Of note she notes that about 3 weeks ago at that time she also had shortness of breath somewhat acutely when moving. However this was relatively short-lived. Now as noted a couple days prior
to this admission she had episodes of shortness of breath. She was found to have extensive PE. She also was found to have left-sided DVT with nonocclusive thrombus in the common femoral and femoral vein on the left side. And then there was
occlusive thrombus in the below the knee veins. Patient denies any significant left leg swelling or pain currently.
On exam/she is awake and alert. No acute distress. Breathing is unlabored at rest currently. Thighs and calves are both soft. No significant edema. No signs of phlegmasia. Compartments all soft. Palpable pedal pulses bilaterally.
CT venogram and ultrasound reviewed.
Plan/ Left lower extremity common femoral/femoral and popliteal vein nonocclusive thrombus, occlusive thrombus in the left peroneal and posterior tibial veins. CT venogram demonstrates no evidence of iliac vein thrombosis. No major iliac vein
compression/May Thurner compression). If at all there is some mild compression of the left common iliac vein just proximal to the confluence. However to my interpretation of the images, it does not look to be significant at all. Therefore no
indication for catheter directed interventions currently. Recommend continued anticoagulation, defer to pulmonary regarding PE management. Defer to hematology regarding hematologic/hypercoagulable workup as outpatient. Discussed with Dr. Rudd
at bedside.
Original Note:
Consultation
Consultation Request
Date/Time Consultation Performed: 02/26/25 11am
Performing Provider: Olimpia
Reason for Consultation: DVT/PE/MTS
Medical History
-
Chief Complaint: SOB
History of Present Illness:
60 year old female with past medical history significant for DVT/PE in 2004 following a cast for ankle fracture presented 02/24/25 to the emergency room for two episodes of shortness of breath. Pt has elevated d-dimer and troponin in ER, sent for PE
study. CTA chest showed acute saddle PE. Pt was not a candidate for thrombolysis/embolectomy per IR/Scientific Affairs Manager. Was started on heparin gtt and admitted to IMU for management and continued monitoring. Pt's symptoms and VS remain stable on room air.
DVT study showed nonocclusive thrombus to left common femoral, femoral, and popliteal veins. Occlusive thrombus left peroneal and PT veins. No thrombus noted in SFA.
CT venogram showed No thrombus left external iliac/common iliac veins or IVC. Mild compression left common iliac vein by left common iliac artery.
Pt saw Dr. Ashley Chakraborty in [place] (hematology) in the past and reports negative hypercoagulable work up.
Vascular consult for MTS. Pt seen at bedside this morning with present. She reports feeling at her baseline. Denies LE swelling/discomfort. She reports she always has a slightly larger leg leg then right since her DVT in 2004. She states she
would not have known she had a DVT d/t feeling at her baseline. She has not been sedentary, no recent trips. No change in her activity level. She currently denies SOB on room air.
Left leg slightly larger then right. No swelling noted BL. BL feet warm, pink, +2DP and PT pulses BL.
Past Medical History
Past Medical History: Hypercholesterolemia, Psychiatric (anxiety/depression) and Other (DVT/PE 2004)
Past Surgical History: Appendectomy and Gynecological
Social History
Tobacco: Former Smoker
Alcohol: Occasional
Personal:
Living: With Family
Employment: Employed
Family History
Family History: Reviewed & Not Pertinent
Allergies / Home Medications
Allergy/AdvReac Type Severity Reaction Status Date / Time
No Known Allergies Allergy Verified 02/24/25 08:27
�Medication �Instructions �Recorded �Confirmed �Type
aspirin 81 mg tablet,delayed 81 mg PO DAILYPRN PRN chest pains 07/27/15 02/24/25 History
release
sertraline 100 mg tablet 150 mg PO HS Mental Health/Anxiety 07/27/15 02/24/25 History
acetaminophen 325 mg tablet 650 mg PO Q6HPRN PRN mild pain 02/24/25 02/24/25 History
(Tylenol)
clonazepam 0.25 mg disintegrating 0.25 mg PO BIDPRN PRN anxiety 02/24/25 02/24/25 History
tablet
digestive enzymes 1 cap PO AC Supplement 02/24/25 02/24/25 History
pantoprazole 20 mg tablet,delayed 20 mg PO DAILY GERD 02/24/25 02/24/25 History
release (Protonix)
apixaban 5 mg (74 tabs) tablets in See Rx Instructions PO .COMPLEX 02/25/25 Rx
a dose pack (Eliquis DVT-PE Treat #74 ea
30D Start)
Review of Systems
-
History Source: Patient and Family
All other systems: Negative unless noted
Constitutional: Reports No Symptoms
EENT: Reports No Symptoms
Respiratory: Reports Trouble Breathing (resolved)
Cardiac: Reports No Symptoms; Denies Chest Pain
Vascular: Denies Leg Pain / Claudication
Abdomen/GI: Reports No Symptoms
Musculoskeletal: Reports No Symptoms
Skin: Reports No Symptoms
Neurological: Reports No Symptoms
Physical Exam
Vital Signs
Temp Pulse Resp BP Pulse Ox
98.3 F 65 13 125/78 99
02/26/25 07:44 02/26/25 10:00 02/26/25 10:00 02/26/25 10:00 02/26/25 10:00
Lab Results
02/26/25 06:22
Troponin I Cancelled 02/25/25 08:47
Kne-X-Ziwrwourtgz Pept 86.9 pg/ml 02/24/25 09:45
Physical Exam
General: No Apparent Distress
HEENT: Normocephalic and Atraumatic
Respiratory: Non Labored Respirations
Cardiac: Negative JVD
GI: Soft and Non Tender
Musculoskeletal: No Clubbing, No Cyanosis and No Edema
Skin: Warm
Neuro: Awake, Alert and Oriented
Psych: Calm
Pulses: Bilateral Dorsalis Pedis: +2 and Bilateral Posterior Tibial: +2
Assessment / Plan
-
60 yo female here with saddle PE sob resolved on heparin drip. LLE DVT asymptomatic, hx of DVT/PE [address]ogram with mild compression of left common iliac vein by left common iliac artery
Plan:
Agree with heparin gtt
Recommend life long anticoagulation
I will add follow up to the chart for our office as well
If pt develops lower extremity swelling, recommend compression/elevation
D/w Dr Doan
Data Reviewed
-
CT Scan: Discussed with Patient
Ultrasound: Discussed with Patient
Labs: Labs Reviewed by me
[2025-02-26 13:09] LABS: APTT 137.3 Sec (23.4-35.0)
[2025-02-26] MEDS: KLONOPIN 0.25 MG PO (13:40)
[2025-02-26 14:13] LABS: Blood Urea Nitrogen 18 mg/dl (7-17); Calcium 10.5 mg/dl (8.4-10.2); Carbon Dioxide 23 mmol/L (22-30); Chloride 108 mmol/L (98-107); Estimated Creatinine Clearance 105 ml/min; Glucose 103 mg/dl (70-99); Magnesium 2.2 mg/dl (1.6-2.3); Potassium 3.9 mmol/L (3.5-5.1); Sodium 139 mmol/L (135-145); eGFR > 60.00
[2025-02-26] MEDS: ELIQUIS 10 MG PO ×2 (14:29→20:09)
--- NOTE | 2025-02-26 15:20 | CM ---
Patient with Dx Acute saddle PE, LLE DVT. Room air. Per nurse; ambulatory in room.
Spoke with pharmacist, Jarred España; both Eliquis and Xarelto require prior auth. Provided Eliquis Free Month card ID #/[id number]/[id number]/Group # to pharmacist and she entered info so patient can receive one Free Month of Eliquis. Dr Brown &
Tobin aware. Provided update to patient that first month of Eliquis is setup with her pharmacy to be covered fully with copay card, and she will be able to use $10/month copay card once MD completes prior auth & Eliquis is approved.
CM continuing to follow.
Plan home.
[2025-02-26] MEDS: ZOLOFT 150 MG PO (20:09)
--- NOTE | 2025-02-26 22:15 | PTCARENOTE ---
Received patient from IMU via wheelchair. Patient ambulated from wheelchair to bed x1 assist. AAOx3, no current complaints of pain. Oriented patient to room and placed call puga within reach.
[2025-02-27] VITALS (8 sets, daily range): BP systolic 97–121; BP diastolic 68–86; PULSE 71; O2SAT 95–98
[2025-02-27 06:52] LABS: Hematocrit 45.2 % (37.0-47.0); Hemoglobin 15.3 g/dL (12.0-16.0); Mean Corp Hgb Conc. 33.8 g/dL (33.0-37.0); Mean Corpuscular Volume 88.8 fL (81.0-99.0); Platelet Count 154 10^3/uL (130-400); Red Cell Dist. Width 12.7 % (11.5-14.5)
[2025-02-27 07:14] LABS: Blood Urea Nitrogen 21 mg/dl (7-17); Calcium 10.1 mg/dl (8.4-10.2); Carbon Dioxide 23 mmol/L (22-30); Chloride 110 mmol/L (98-107); Estimated Creatinine Clearance 90 ml/min; Glucose 111 mg/dl (70-99); Magnesium 2.2 mg/dl (1.6-2.3); Potassium 4.5 mmol/L (3.5-5.1); Sodium 141 mmol/L (135-145); eGFR > 60.00
--- NOTE | 2025-02-27 08:31 | VATNOTE ---
During routine rounds, pt notified this RN that she was having exquisite pain in her right antecubital fossa at the site of a PIV that has since been removed. Pt states she also has had multiple blood draws from the area. R antecubital fossa noted
to have redness, bruising, and swelling. Heat applied to site and arm elevated, pt verbalized relief from this intervention. Discussed with PCN and peripheral vascular ultrasound recommended to MD, ordered. Will continue to follow.
[2025-02-27] MEDS: NON-FORMULARY ITEM 1 CAP PO ×3 (08:34→17:52)
[2025-02-27] MEDS: KLONOPIN 0.25 MG PO (08:36)
[2025-02-27] MEDS: PROTONIX 40 MG PO (08:36)
[2025-02-27] MEDS: ELIQUIS 10 MG PO ×2 (08:37→20:04)
--- NOTE | 2025-02-27 09:03 | W.PN.HOSP.TC ---
Today's Communication/Plan
-
Monitor
Likely discharge tomorrow, home with home services, if remains stable/continues to improve.
Assessment / Plan
Assessment / Plan
Physical Exam
General: Well Developed, Well Nourished and No Apparent Distress
HEENT: NormoCephalic, Moist mucous membranes and Atraumatic
Respiratory: Clear
Cardiac: S1/S2 and Regular Rhythm; No Murmur or Rub
GI: Soft, Non Tender, Non Distended and Normal Bowel Sounds; No Organomegaly
Rectal: Deferred by Provider
Musculoskeletal: No Clubbing, No Cyanosis and No Edema, LLE calf slightly larger than RLE but no tenderness
Skin: No Rash
Neuro: AOx3 conversant coherent
60F w/ remote hx DVT/PE provoked from immobility d/t ankle strain treated with wafarin, neg hypercoagulable work up at the time, here for PE and extensive DVT LLE.
Acute saddle PE w/ possible cor pulmonale
LLE ext DVT appreciated on Venous Duplex (unclear Acuity Chronicity suspect mix of Acute and Chronic DVT)
Hemodynamically stable
- No recent acute illness, recent surgery, not on hormonal pills
- HX DVT and PE 20 yrs ago following immobility from strain ankle. Treated with warfarin
- Unremarkable w/u for hypercoagulability state at that time
- ECHO appreciated EF 60-65% no significant valve abn's
- Heparin gtt transitioned to Eliquis
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
- CT abd/pelvs w/ contrast appreciated
- Vascular eval appreciated outpt follow up recommended
- Pulm eval appreciated
- PT/OT eval appreciated Home Services
- Home Oxygen assessment appreciated no needs
RUE swelling likely superficial thrombophlebitis
-Venous Duplex RUE appreciated no clots
-ice packs prn
-monitor
Elevated TPNI
- likely due to NIMI due to saddle PE
- trended to peak 0.283
-chest pain free
reported Hx HLD not on statin
GERD
- cont PPI
Anxiety/depression
- stable
- on Clonazepam and Sertraline
DVT Px: Eliquis
Full code
Discussed with patient and patient's Mikal
I spent a total of 45 minutes with the patient or on the floor. More than 50% of this time involved counseling and coordination of care.
Anticipated Discharge: Within 24 hours
Subjective/Interval History
-
Date of Service: February 27, 2025
No acute distress, comfortable at rest. RUE swelling noted likely superficial thrombophlebitis. Patient reports significant exercise intolerance. Otherwise stable respiratory status at rest
Objective Data
-
Labs:
Laboratory Results
02/27/25
06:03
WBC 6.5
Hgb 15.3
Hct 45.2
Plt Count 154
Sodium 141
Potassium 4.5
Chloride 110 H
Carbon Dioxide 23
BUN 21 H
Creatinine 0.7
Glucose 111 H
Calcium 10.1
Vital Signs:
Vital Signs
Temp Pulse Resp BP Pulse Ox
98.1 F 67 16 121/86 96
02/27/25 07:50 02/27/25 07:50 02/27/25 07:50 02/27/25 07:50 02/27/25 07:50
I&O
02/26/25 02/27/25 02/28/25
06:59 06:59 06:59
Intake Total 120 / 120
Balance 120 / 120
--- NOTE | 2025-02-27 09:11 | PN.CDI ---
CDI
- -
CDI:
Physician Documentation Request
Admit Date: 02/24/25 13:04
Dear Doctor Stephanie,
02/26 progress note includes 'LLE ext DVT appreciated on Venous Duplex:
Please clarify which of the following accurately represents the acuity of the DVT
____ Acute
Chronic
____ Other
Use of terms such as suspected, likely, concern for, or probable (associated with a specific diagnosis that is being evaluated, monitored, or treated as if it exists) are acceptable and can be coded in the inpatient setting, when documented at the
time of discharge.
Thank you,
Barbara Mendieta RN, BSN
CDI Specialist
tiger text
Please use your independent medical judgment in providing your response.
--- NOTE | 2025-02-27 09:15 | PN.CDI ---
CDI
- -
CDI:
Physician Documentation Request
Admit Date: 02/24/25 13:04
Dear Doctor Stephanie,
Patient presents with exertional shortness of breath. Hx of DVT and PE .
Found to have saddle PE this hospitalization.
02/26 progress note includes 'LLE ext DVT appreciated on Venous Duplex' (from 02/25)
Please clarify which of the following accurately represents the acuity of the DVT
____ Acute
Chronic
____ Other
Use of terms such as suspected, likely, concern for, or probable (associated with a specific diagnosis that is being evaluated, monitored, or treated as if it exists) are acceptable and can be coded in the inpatient setting, when documented at the
time of discharge.
Thank you,
Barbara Mendieta RN, BSN
CDI Specialist
tiger text
Please use your independent medical judgment in providing your response.
--- NOTE | 2025-02-27 09:23 | W.PN.PUL3 ---
Today's Communication / Plan
-
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
Monitor hematomas on patient's arms, trending H&H, and would consider outlining the larger hematomas to assure that it does not continue to expand
She also should follow-up with her PCP following discharge; will also need hematology evaluation as outpatient for hypercoag workup and for discussion regarding AC duration (3 months vs lifelong)
Case management consulted to assess affordability of NOAC - prior authorization performed for Eliquis
CT venogram negative for May-Thurner syndrome, with mild compression of the left common iliac vein by the left common iliac artery � vascular surgery consulted, no interventions required
Ok for pt to get up OOB today; PT/OT rec'd home health
Home O2 assessment performed today shows no need for home O2 with reta SaO2 95% after walking 150 feet
Pain control
Anxiolytics as needed
Outpatient pulmonary office follow-up for full PFTs
No additional recommendations at this time. Pulmonary service will now sign off. Please reconsult if there are any additional questions/concerns, or if patient's respiratory status deteriorates. Outpatient pulmonary office follow-up will be
arranged for full PFTs.
Assessment
-
Assessment: 60-year-old female with a past medical history of DVT/PE (2004), anxiety/depression, and hypercholesterolemia who presents with sudden SOB. She was at home and she developed sudden SOB with difficulty taking a deep breath; also
developed nausea. SOB started at around 7 AM today. About 5-6 weeks ago, she had pain on the backside of her knee which went up towards the back of her thigh, and she saw her orthopedics who administered a cortisone shot which resolved this pain.
She did have a prior DVT which was diagnosed as a provoked clot after patient was immobile from a broken ankle requiring a cast. This then led to an acute pulmonary embolism. She was on Coumadin for 6 months and then transitioned to low-dose
aspirin which she was taken off after a few years. She did see hematology in the past with Dr. Ashley Chakraborty in [place], and prior hypercoagulable workup was reportedly negative, per the patient. In the ER, patient was afebrile with pulse
rate 84, respiratory rate 18, BP 137/99 and saturating 100% on room air. Labs showed a D-dimer of 15.69 with a troponin of 0.117. CXR showed no acute cardiopulmonary abnormality. CTA chest showed an acute saddle pulmonary embolism with large clot
burden. Also evidence of RV strain. PERT alert was called, and patient was not considered a candidate for catheter directed thrombolysis or embolectomy after discussion with IR and guest services assistant. She was given aspirin in the ER, and then started
on heparin infusion. Patient admitted to the hospitalist service and pulmonary service now consulted for additional management/recommendations.
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
Impression:
#Acute saddle PE with RV strain - PESI score: 60 = class I, very low risk of 30-day mortality (0 - 1.6%)
#Elevated troponin due to above
#LLE extensive DVT
#History of DVT/PE (occurred in 2004 per patient after suffering a left-sided broken ankle)
#History of 'abdominal clot' (?mesenteric thrombus)
#Hypercholesterolemia
#Anxiety/depression
Plan:
- Continue with systemic anticoagulation, currently with heparin drip --> transition to NOAC today with Eliquis
- Case management consult to assess affordability of Eliquis vs Xarelto --> prior auth performed by for Eliquis.
- Of note, patient has bruising on both upper extremities, with a significant hematoma at her right antecubital region, and RUE US showed no evidence of DVT with normal blood flow in the right brachial, basilic and cephalic veins. Continue to
monitor hematoma and would outline the region to assure that it continues to improve. Trend H/H q12-24 hrs
- Transthoracic echo showed mild pulmonary hypertension with PASP 35-37 mmHg with preserved RV systolic function
- LLE duplex US on 02/25/2025 shows a nonocclusive thrombus in the left CFV down to the popliteal veins. Occlusive thrombus seen in the left peroneal + PT veins. No clot seen in the left superficial femoral vein.
- She does have mild left lower extremity swelling but it is not significantly painful, and there is some mild discoloration to her left lower extremity (now improved as of 02/26) but there is no flushing or cyanosis seen
- Given that she has a unilateral LLE DVT which is recurrent, and she has pain despite being on AC with some skin discoloration, there was concern for MTS --> CT venogram performed on 02/26/2025 showing no evidence of thrombosis in the left external
iliac or common iliac veins, with mild compression of the left common iliac vein by the left common iliac artery. No report of stenosis. Hence, patient does not have May�Thurner syndrome
- Vascular surgery with Dr. Davalos saw the patient today, and no current indication for vascular intervention at this time
- Ok for pt to get up OOB as tolerated
- PT/OT - rec'd home health
- Given that patient's RV has preserved systolic function, she remains normotensive and is on room air, agree that patient should do well with anticoagulation alone without catheter directed thrombolysis versus embolectomy of her PE; this have been
discussed upon admission with the guest services assistant as well as interventional radiology, who also agree with anticoagulation alone
- Troponin has peaked at 0.283 on 02/24/2025, no longer need to continue trending at this time
- Recommend outpatient hematology evaluation for hypercoagulable workup and to assist for proper duration of AC; given that this is the patient's second VTE event and that this is a saddle PE, suspect that she will require lifelong AC going forward
- Of note, patient says she is up-to-date with her mammogram + colonoscopy (last mammogram was last year which showed no evidence of breast cancer, and colonoscopy was within the last 5-10 years and she was not recommended to have another one for
another 10 years)
- Maintain SpO2 >90-94% with supplemental O2 as needed
- Home O2 assessment performed today showing no need for home oxygen, with reta SaO2: 95% after walking 150 feet on room air
- prn nebulized bronchodilators - not currently bronchospastic
- Incentive spirometer encouraged q1hr while awake
- Replete electrolytes with K>4, Mg>2
- Trend H/H and transfuse if needed to keep Hb>7g/dL; keep plt>20k, unless there is concern for bleeding then keep plt>50k
- Maintain euglycemia with goal BG >100 and <180
- DVT ppx: Eliquis
Code status: Full code
I answered all of the patient's and her , Mikal, questions today at bedside.
No additional recommendations at this time. Pulmonary service will now sign off. Thank you for allowing us to be involved in the care of this patient. Please reconsult if there are any additional questions/concerns, or if patient's respiratory
status deteriorates. Outpatient pulmonary office follow-up will be arranged for full PFTs.
Data:
CTA chest 02/24/2025:
Positive for pulmonary embolism with large clot burden including linear saddle embolism.
Pulmonary artery branching order level of the most proximal pulmonary embolism: Pulmonary artery bifurcation.
Evidence of right ventricular heart strain, with an RV to LV ratio is 1.2 and distention of the main pulmonary artery.
CT venogram 02/26/2025:
Subtle filling defect within the visualized left common femoral vein, suggesting nonocclusive thrombus. There is no evidence for thrombus within the left external iliac or common iliac veins. There is no evidence for thrombus within the IVC. Mild
compression of the left common iliac vein by the left common iliac artery.
Fatty infiltration of the pancreas.
Status post appendectomy. Colonic diverticula with no CT evidence for diverticulitis.
Total time spent today was 42 minutes for this encounter. Time includes reviewing laboratory test/imaging results, reviewing pertinent medical records, obtaining and reviewing medical history, performing an appropriate exam, ordering medications,
tests and procedures. Time also includes documentation of this encounter, coordinating patient care and communicating with other healthcare professionals. Total time does not include separately billed tests performed on this date of service.
Subjective Data
-
Date of Service:
Date of Service: February 27, 2025
Chief Complaint: Pulmonary Follow Up
Subjective:
Patient seen and evaluated this morning. Feels well, still with some mild SOB with exertion but it is still improved compared to admission. She denies cough, TRAVIS, nausea, abdominal pain, fevers or chills. Bruising seen on her right arm at the AC
region likely from previous heparin drip with supratherapeutic PTT levels. She denies numbness, tingling of her right arm.
Review of Systems
General: Other (Negative unless mentioned above)
Objective Data
Data Reviewed
Vital Signs / I&O / Oxygen:
Vital Signs
Temp Pulse Resp BP Pulse Ox
98.1 F 67 16 121/86 96
02/27/25 07:50 02/27/25 07:50 02/27/25 07:50 02/27/25 07:50 02/27/25 07:50
Intake and Output
02/26/25 02/27/25 02/28/25
06:59 06:59 06:59
Intake Total 120 / 120
Balance 120 / 120
SaO2 96
Physical Exam
General: Respiratory Distress (negative), Comfortable, Chills (negative) and Sweats (negative)
HEENT: Normocephalic and Anicteric
Cardiovascular: S1-S2, Rub (negative) and Peripheral Edema (negative)
Respiratory: Clear, Wheeze (negative), Crackles (negative), Rhonchi (negative), Non-Labored Respirations and Stridor (negative)
GI: Soft, Non Distended, Non Tender and Normal Bowel Sounds
Neurology: Awake, Alert, Oriented and Tremors (negative)
Skin: Warm, Dry, Cyanosis (negative), Jaundice (negative) and Bruising (Upper extremities)
Labs/Micro/Reports
Lab Data
02/27/25 06:03
02/27/25 06:03
Laboratory Results
02/26/25
12:41
APTT 137.3 H
[2025-02-27] MEDS: ZOLOFT 150 MG PO (20:04)
[2025-02-28 03:34] VITALS: BP 105/70
[2025-02-28 07:25] VITALS: BP 124/85
--- NOTE | 2025-02-28 07:31 | VATNOTE ---
Assessed right upper arm, previous IV site. pt reports pain improved, site with bruising still present, slightly tender to touch. no significant redness/swelling present
[2025-02-28] MEDS: ELIQUIS 10 MG PO ×2 (08:27→18:08)
[2025-02-28] MEDS: PROTONIX 40 MG PO (08:28)
[2025-02-28] MEDS: KLONOPIN 0.25 MG PO (08:28)
[2025-02-28] MEDS: NON-FORMULARY ITEM 1 CAP PO ×3 (08:28→17:25)
--- NOTE | 2025-02-28 10:05 | W.PN.HOSP.TC ---
Today's Communication/Plan
-
discharge
Assessment / Plan
Assessment / Plan
Physical Exam
General: Well Developed, Well Nourished and No Apparent Distress
HEENT: NormoCephalic, Moist mucous membranes and Atraumatic
Respiratory: Clear
Cardiac: S1/S2 and Regular Rhythm; No Murmur or Rub
GI: Soft, Non Tender, Non Distended and Normal Bowel Sounds; No Organomegaly
Musculoskeletal: No Clubbing, No Cyanosis and No Edema, LLE calf slightly larger than RLE but no tenderness, RUE antecubital ecchymosis swelling
Skin: No Rash
Neuro: AOx3 conversant coherent
60F w/ remote hx DVT/PE provoked from immobility d/t ankle strain treated with wafarin, neg hypercoagulable work up at the time, here for PE and extensive DVT LLE.
Acute saddle PE w/ possible cor pulmonale
LLE ext DVT appreciated on Venous Duplex (unclear Acuity Chronicity suspect mix of Acute and Chronic DVT)
Hemodynamically stable
- No recent acute illness, recent surgery, not on hormonal pills
- HX DVT and PE 20 yrs ago following immobility from strain ankle. Treated with warfarin
- Unremarkable w/u for hypercoagulability state at that time
- ECHO appreciated EF 60-65% no significant valve abn's
- Heparin gtt transitioned to Eliquis
- c/w COMPILATION CLERK ASA
- CT abd/pelvs w/ contrast appreciated
- Vascular eval appreciated outpt follow up recommended
- Pulm eval appreciated
- PT/OT eval appreciated Home Services
- Home Oxygen assessment appreciated no needs
RUE swelling likely superficial thrombophlebitis
-Venous Duplex RUE appreciated no clots
-ice packs prn
-improving
Elevated TPNI
- likely due to NIMI due to saddle PE
- trended to peak 0.283
-chest pain free
reported Hx HLD not on statin
GERD
- cont PPI
Anxiety/depression
- stable
- on Clonazepam and Sertraline
DVT Px: Eliquis
Full code
Medically stable for discharge home with home services and outpatient follow up recommendations.
Discussed with patient and patient's Mikal
Total Time Preparing Discharge ___40____ minutes including examination of the patient, summary of the hospital stay, instructions for continuing care to all relevant caregivers; and preparation of discharge records, prescriptions, and referral
forms if necessary.
Anticipated Discharge: Today
Subjective/Interval History
-
Date of Service: February 28, 2025
Seen and examined at bedside in no acute distress sitting up comfortably bed. Overall reports feeling well. RUE swelling pain improving. Exercise intolerance persists. Patient otherwise reports feeling relatively well, looking forward to going
home.
Objective Data
-
Vital Signs:
Vital Signs
Temp Pulse Resp BP Pulse Ox
97.4 F 68 18 124/85 97
02/28/25 07:25 02/28/25 07:25 02/28/25 07:25 02/28/25 07:25 02/28/25 08:10
I&O
02/27/25 02/28/25 03/01/25
06:59 06:59 06:59
Intake Total 480 / 480
Balance 480 / 480
[2025-02-28 11:10] VITALS: BP 105/70
[2025-02-28 15:10] VITALS: BP 101/56
--- NOTE | 2025-02-28 17:12 | W.DCSUMMARY ---
Discharge Summary
Discharge Data
Date of Admission: 02/24/25
Date of Discharge: 02/28/25
-
Pending Results: No
Discharge Plan
-
Patient Disposition: Home with Home Care
Discharge Diagnosis/Procedures: Acute saddle Pulmonary Embolism
Left Lower Extremity Deep Vein Thrombosis
Condition: Fair
Diet: Low Cholesterol
Activity: As tolerated
Driving Restrictions: As prior to admission
Bathing Restrictions: None
Blood Work: Repeat CBC and BMP with primary care provider in 1 week of discharge.
Others Tests: Ultrasound appt at [facility]: 03/31 @ 8am
Other Services: PT and OT
Activity Restrictions/Additional Instructions:
Follow up with primary care provider and Hematology in 1 week of discharge. Pulmonology in 2-3 weeks of discharge. Keep your appointment with Vascular Specialist.
Eliquis has been prescribed for treatment Pulmonary Embolism and Left Lower Extremity Deep Vein Thrombosis. Eliquis requires a 7 day loading dose 10 mg (2 tabs) twice a day started here Mon02/26/25 to continue through 03/04/25. Afterwards,
reduce to maintenance dose 5 mg (1 tab) twice a day from then on.
The current supply off Eliquis prescribed (approx 26 days) was obtained via a coupon program that can not be re-used. For further Eliquis refills, your insurance requires a prior-authorization- follow up with your primary care provider, Hematology,
and/or Pulmonology to obtain.
Please take medications as prescribed/recommended and follow up with primary care provider, Hematology, Pulmonology and/or other healthcare provider involved in your care for refills and/or further adjustment to your medication regimen as necessary.
Referrals:
Roshan Pittman DO [Active, Hematology / Oncology] - in one week
Albert Rudd MD [Active, Pulmonary Medicine] - in two to three weeks
Referral Note: Check full PFT on day of office visit
Odalys Wolfe CRNP [Family Provider, Family Practice] - in one week
Heather Kapadia CRNP [Specified Professional Personl, Vascular Surgery] - 04/01/25 10:00 am
Referral Note: Vascular surgery office follow up
Prescriptions:
New
Eliquis 5 mg tablet
5 mg PO BID Qty: 60 0RF
Continued
sertraline 100 MG tablet
150 mg PO HS
aspirin 81 MG tablet,delayed release (DR/EC)
81 mg PO DAILYPRN PRN (Reason: chest pains)
digestive enzymes Capsule
1 cap PO AC
acetaminophen [Tylenol] 325 mg Tablet
650 mg PO Q6HPRN PRN (Reason: mild pain)
pantoprazole [Protonix] 20 mg Tablet,Delayed Release (Dr/Ec)
20 mg PO DAILY
clonazepam 0.25 mg Tablet,Disintegrating
0.25 mg PO BIDPRN PRN (Reason: anxiety)
Discharge Orders:
Discharge Patient (As Directed); Ordered 02/28/25
Ordered By: Rod Brown
Discharge Date and Time
Print Language: BULGARIAN
--- NOTE | 2025-02-28 17:13 | CM ---
MD entered order for discharge.
Pt has [place] coupon.
Pt said her Mikal will drive her home.
Declined VN
PLAN Home no needs
== END 2025-02-28 19:24 | disposition home or self-care (01) | DRG 175 ==
LOC: 4 EAST ACU 13:04
PROVIDERS: Physician Assistant; ADMITTING PHYSICIAN Internal Medicine; ATTENDING PHYSICIAN Internal Medicine; CONSULT PHYSICIAN Internal Medicine Critical Care Medicine; EMERGENCY PHYSICIAN Emergency Medicine; FAMILY PHYSICIAN Nurse Practitioner Family; OTHER PHYSICIAN Surgery
DX: I26.09 Other pulmonary embolism with acute cor pulmonale (principal); I82.402 Acute embolism and thrombosis of unspecified deep veins of left lower extremity; I5A Non-ischemic myocardial injury (non-traumatic); I26.92 Saddle embolus of pulmonary artery without acute cor pulmonale; Z87.891 Personal history of nicotine dependence; K21.9 Gastro-esophageal reflux disease without esophagitis; F41.9 Anxiety disorder, unspecified; F32.A Depression, unspecified; Z79.01 Long term (current) use of anticoagulants; E78.00 Pure hypercholesterolemia, unspecified; I27.20 Pulmonary hypertension, unspecified; Z86.711 Personal history of pulmonary embolism; Z86.718 Personal history of other venous thrombosis and embolism
CPT/HCPCS: 71046; 71275; 74177; 80048; 80053; 83735; 83880; 84100; 84484; 85025; 85027; 85379; 85610; 85730; 86850; 86900; 86901; 93005; 93306; 93970; 93971; 96374; 96376; 97162; 97166; 97535; 99291; Q9967

== ENCOUNTER → 2025-03-31 07:47 | Outpatient (REF) | payer BC, SELFPAY | LOC: DHVS 07:47 | PROVIDERS: ATTENDING PHYSICIAN Surgery Vascular Surgery; FAMILY PHYSICIAN Nurse Practitioner Family | DX: I87.1 Compression of vein (principal) | CPT/HCPCS: 93971 ==

== ENCOUNTER 2025-05-11 17:09 | Emergency (ER) | payer BC, SELFPAY ==
[2025-05-11 17:11] VITALS: BP 135/85
[2025-05-11 17:59] VITALS: BMI 28.5
--- NOTE | 2025-05-11 19:20 | ED.GENMED ---
History of Present Illness
General
Chief Complaint: Eye Problems
Source: patient
Time Seen by Provider: 05/11/25 18:15
History of Present Illness
History of Present Illness:
60-year-old female with past medical history of DVT and PE, currently on Eliquis presenting to the emergency department for a visual disturbance which began yesterday, patient describing a floater in her right eye as if she had a fly flying in front
of her which did not go away. Today patient states that the floater developed into some flashing light sensation with the number for and squiggly lines and then describing as if she had a film over her eye that did not allow her vision to be as
clear but no peripheral vision changes or central vision change. Patient notes there is no pain associated with this, no headache, no focal weakness or numbness. She denies any history of similar. No history of hypertension or diabetes. No other
concerns presently. Patient does not wear glasses or contact lenses.
Past History
Past History
ED Past Medical History: Hypercholesterolemia, Psychiatric and Other (DVT, PE,)
ED Past Surgical History: Appendectomy and Gynecological (Hysterectomy)
Social History
Tobacco: Former smoker
Alcohol: Occasional
Drug: None
Personal:
Living: with family
Employment: Employed
Review of Systems
Review of Systems
All Other Systems: ROS reviewed and negative except as documented in HPI and ROS
Phy Exam
Physical Exam
Physical Exam:
GENERAL: Alert , in no apparent distress
EYE: conjunctiva clear, pupils 4 mm bilateral, PERRL, EOMI, no proptosis, no hyphema
Visual acuity: Right eye 20/40, left eye 20/30, both eyes 20/40
Intraocular pressures measured 19 in both eyes
Slit Lamp Exam: no hyphema
Head: Normocephalic atraumatic
NECK: Supple,
ENT: mmm.
LUNGS: no acute respiratory distress
NEUROLOGICAL: Alert and oriented
SKIN: Warm and dry, skin intact.
MUSCULOSKELETAL: well perfused.
PSYCH: Normal and appropriate interaction.
Scores
Heart Failure Risk
Heart Failure Risk Score: Not Applicable
Heart Score for Chest Pain Patients
STEMI patient?: Not applicable
Withdrawal Assessment of Alcohol
Withdrawal Assessment Completed?: Not applicable
Course
Vital Signs
Initial and Last Documented VS:
Initial Vital Signs
Temp Pulse Resp BP Pulse Ox
98.9 F 71 16 135/85 98
05/11/25 17:11 05/11/25 17:11 05/11/25 17:11 05/11/25 17:11 05/11/25 17:11
Last Documented Vital Signs
Temp Pulse Resp BP Pulse Ox
98.9 F 71 16 135/85 98
05/11/25 17:11 05/11/25 17:11 05/11/25 17:11 05/11/25 17:11 05/11/25 19:21
MDM/Problems Addressed
Differential Diagnosis Includes:
Vitreous Hemorrhage
Retinal Detachment
CRAO
CVA
TIA
Optic Neuritis
GCA
MS
MDM/Problems Addressed:
60-year-old female presenting to the ER for evaluation of painless visual disturbance to her right eye which started yesterday as a floater, today had more flashes of light and abnormal lines within her vision and now a film overlying the vision. I
have most concern for vitreous hemorrhage/retinal detachment. I contacted on-call ophthalmology who agrees with assessment and that they would be able to see the patient first thing tomorrow morning. They took patient's information down including
her cell phone number. I did discuss with the patient that if she did not feel comfortable waiting until the morning she could go to [facility] or down to [facility] for further evaluation. She states she will follow-up with the
chief counsel tomorrow. Patient was advised to remain n.p.o. prior to her visit as she may need to go to the OR tomorrow for repair.
*Pulse Oximetry
SaO2: 98
Oxygen Mode of Delivery: Room air
Patient hypoxic: no
*Critical Care Note
Total Time (30-74mins, 75-104mins- exclusive of procedures): Not Applicable
Patient Management
Discussion with other providers: Afternoon Nanny
ED Attending Note
-
Portions of this chart may have been created with voice recognition software.� Occasional wrong word or��sound alike� substitutions may have occurred due to the inherent limitations of voice recognition software.
Discharge Plan
Departure
Patient Disposition: Home (Routine Discharge)
Date of Disposition: 05/11/25
Time of Disposition: 19:21
Patient with high blood pressure during this ER visit?: Yes
Discharge Problem:
Visual disturbance
Instructions: Retinal Detachment Repair
Prescriptions:
No Action
sertraline 100 MG tablet
150 mg PO HS
aspirin 81 MG tablet,delayed release (DR/EC)
81 mg PO DAILYPRN PRN (Reason: chest pains)
digestive enzymes Capsule
1 cap PO AC
acetaminophen [Tylenol] 325 mg Tablet
650 mg PO Q6HPRN PRN (Reason: mild pain)
pantoprazole [Protonix] 20 mg Tablet,Delayed Release (Dr/Ec)
20 mg PO DAILY
clonazepam 0.25 mg Tablet,Disintegrating
0.25 mg PO BIDPRN PRN (Reason: anxiety)
Eliquis 5 mg tablet
5 mg PO BID Qty: 60 0RF
Referrals:
Ross Perez MD [Active, Ophthalmology]
Odalys Wolfe CRNP [Family Provider, Family Practice]
Interventions
Interventions:
*Risk Screen - Suicide Last Done: 05/11/25 17:13
*General Assessment Last Done: 05/11/25 18:00
*Neglect/Abuse Screening Last Done: 05/11/25 17:13
*ED- Fall Risk Assessment Last Done: 05/11/25 18:00
*ED COVID-19 Vaccine History Last Done: 05/11/25 18:00
*Nursing Disposition Last Done: 05/11/25 19:42
Discharge Date and Time
Discharge Date/Time: 05/11/25 19:44
Print Language: TURKISH
== END 2025-05-11 19:44 | disposition home or self-care (01) ==
LOC: EMR 17:09
PROVIDERS: EMERGENCY PHYSICIAN Emergency Medicine; FAMILY PHYSICIAN Nurse Practitioner Family
DX: H53.9 Unspecified visual disturbance (principal); E78.00 Pure hypercholesterolemia, unspecified; Z86.711 Personal history of pulmonary embolism; Z86.718 Personal history of other venous thrombosis and embolism; Z79.01 Long term (current) use of anticoagulants; Z87.891 Personal history of nicotine dependence
CPT/HCPCS: 99283

== ENCOUNTER → 2025-05-19 12:06 | Outpatient (REF) | payer BC, SELFPAY | LOC: RAD 12:06 | PROVIDERS: ATTENDING PHYSICIAN Nurse Practitioner Adult Health; FAMILY PHYSICIAN Nurse Practitioner Family | DX: I26.92 Saddle embolus of pulmonary artery without acute cor pulmonale (principal) | CPT/HCPCS: 71275; Q9967 ==

== ENCOUNTER 2025-06-25 22:49 | Inpatient (IN) | payer BC, SELFPAY ==
[2025-06-25 18:29] VITALS: BP 132/73
--- NOTE | 2025-06-25 19:53 | ED.GENMED ---
History of Present Illness
General
Chief Complaint: DVT/Possible Blood Clot
Source: patient
Exam Limitations: none
Time Seen by Provider: 06/25/25 19:34
Nursing documentation reviewed up to this point in time: agreed with
History of Present Illness
History of Present Illness:
Patient is a 60-year-old female presents to the ER for evaluation. She complains of pain behind her left knee for the past several days. Patient denies any injury. She does have history of PEs(acute saddle embolism in February 2025) and DVTs in this
left leg however has not skipped her Eliquis dose. She does have arthritis and last had a cortisone injection 5 months ago. She denies any fever chills redness. She denies any shortness of breath .She c/o of discomfort mostly with ambulation. Pt
has chronic left leg swelling.
Past History
Past History
ED Past Medical History: Hypercholesterolemia, Psychiatric and Other (DVT, PE,)
ED Past Surgical History: Appendectomy and Gynecological (Hysterectomy)
Social History
Tobacco: Former smoker
Alcohol: Occasional
Drug: None
Personal:
Living: with family
Employment: Employed
Phy Exam
General Physical Exam
General Presentation: no apparent distress
General age: appears stated age
General Skin: warm and dry
General Habitus: normal
General Mental: alert
General Hydration: appears well hydrated
Neurological Exam
Neurological Exam: alert and oriented x3
Musculoskeletal Exam
Musculoskeletal Exam: other ( LLE with strong pulses no erythema no swelling to knee full ROM mild calf swelling (pt reports this is chronic) )
Skin Exam
Skin Exam: normal color and warm/dry
Psychiatric Exam
Psychiatric Exam: normal mood/affect
Course
Orders/Labs/Results
Orders:
Orders
06/25/25 18:32
US Legs, Left [US Periph Venous LOWER Ext LT] Urgent
Comment:
Reason For Exam: pain, r/o DVT
06/25/25 20:44
IV Insert/Care/Rem.- Treatment PRN
06/25/25 20:53
Complete Blood Count/With Diff Urgent
Comprehensive Metabolic Panel Urgent
PTT Urgent
Prothrombin Time Urgent
06/25/25 21:28
Heparin 6,600 units IV NOW STA
Pharmacy Request to Place See Dose Instructions PO NOW STA
Discontinue all Active Warfarin orders?: Yes
06/25/25 21:30
PTT Urgent
Comment: Obtain baseline before beginning heparin infusion if not already collected
Heparin 78270 Units/250 ml 25,000 units in 250 ml IV PER PROTOCOL
Weight to be used for heparin protocol in kilograms (kg):: 82
Protocol:: DVT/PE
PTT Goal Range to be used:: PTT 73 to 111 seconds
Order type:: Initial
INITIAL Infusion Dose (UNITS/KG/hr) & then follow protocol:: 18 units/kg/hr
Infusion Dose in UNITS/hr & then follow protocol (UNITS/hr):: 1,500
INFUSION RATE in mL/hr & then follow protocol (mL/hr):: 15
For DVT/PE algorithm, re-bolus for low PTT?: Yes
PTT less than or equal to 64 seconds:: Re-bolus 80 units/kg (max 10,000units). Increase by 300 units/hr
(+ 3mL/hr)
PTT 64.1 to 72.9 seconds:: Re-bolus 40 units/kg (max 5,000 units). Increase by 200 units/hr
(+ 2mL/hr)
PTT 73 to 111 seconds:: Target Range. No change in rate.
PTT 111.1 to 130.9 seconds:: Decrease rate by 200 units/hr (- 2 mL/hr)
PTT 131 to 199.9 seconds:: HOLD for 1 hr. Then decrease by 200 units/hr (- 2mL/hr)
PTT greater than or equal to 200 seconds:: HOLD for 2 hrs & Notify Provider. Then decrease by 300 units/hr
(- 3mL/hr)
Lab follow-up:: Each change, PTT q6h until 2 consecutive are therapeutic. Then
PTT daily.
Nursing to Place Non Medication Order As Directed
Physician Order: PTT 6 hours after initial start of Heparin infusion
06/25/25 22:[address] See Dose Instructions IV DIRECTED
Abnormal Lab Results
06/25/25
20:53
MCHC 32.8 L g/dL
(33.0-37.0)
Potassium 3.4 L mmol/L
(3.5-5.1)
Carbon Dioxide 31 H mmol/L
(22-30)
BUN 24 H mg/dl
(7-17)
Glucose 107 H mg/dl
(70-99)
06/25/25 20:53
06/25/25 20:53
Vital Signs
Initial and Last Documented VS:
Initial Vital Signs
Temp Pulse Resp BP Pulse Ox
98.5 F 76 18 132/73 99
06/25/25 18:29 06/25/25 18:29 06/25/25 18:29 06/25/25 18:29 06/25/25 18:29
Last Documented Vital Signs
Temp Pulse Resp BP Pulse Ox
98.5 F 76 18 132/73 99
06/25/25 18:29 06/25/25 18:29 06/25/25 18:29 06/25/25 18:29 06/25/25 19:53
Morgue Librarian consulted with Physician
Morgue Librarian consulted with physician?: Yes
Name of Physician Consulted: Jose Maria
MDM/Problems Addressed
Differential Diagnosis Includes:
not limited to: DVT , bakers cyst
MDM/Problems Addressed:
Patient is a 60-year-old female with past medical history of saddle embolism and PE on Eliquis presents for pain behind her left knee.
Ultrasound shows an acute nonocclusive DVT in the left femoral vein. Case reviewed with ED physician case reviewed with hematology Dr. Chapa will order heparin bolus and infusion and plan for admission. Patient is in no acute distress she is not
short of breath.
Patient no acute distress remains well-appearing no shortness of breath white count normal hemoglobin stable; platelets normal BUN minimally elevated.
d/c case with admitting hospitalist.
Chronic conditions affecting care:
PE/DVT
*Radiology
Radiology exam reviewed: radiology read reviewed
*Pulse Oximetry
SaO2: 99
Oxygen Mode of Delivery: Room air
Patient hypoxic: no
*Critical Care Note
Total Time (30-74mins, 75-104mins- exclusive of procedures): Not Applicable
Data Reviewed
Review of Other/Old Records Reveals: Radiology Studies and Discharge Summary
Patient Management
Discussion with other providers: Military Source Operations Officer (DR Chapa )
ED Attending Note
-
Portions of this chart may have been created with voice recognition software.� Occasional wrong word or��sound alike� substitutions may have occurred due to the inherent limitations of voice recognition software.
Discharge Plan
Departure
Patient Disposition: Admit
Date of Disposition: 06/25/25
Time of Disposition: 21:48
Admit to: Med/Surg
Admit to doctor: hospitalist
Presentation/result/management discussed w/ accepting MD/DO: Hospitalist
Patient with high blood pressure during this ER visit?: Yes
Condition: Fair
Covid-19: Not Applicable
Discharge Problem:
Acute deep vein thrombosis (DVT) of femoral vein of left lower extremity
Prescriptions:
No Action
sertraline 100 MG tablet
150 mg PO HS
digestive enzymes Capsule
1 cap PO AC
acetaminophen [Tylenol] 325 mg Tablet
650 mg PO Q6HPRN PRN (Reason: mild pain)
pantoprazole [Protonix] 20 mg Tablet,Delayed Release (Dr/Ec)
20 mg PO DAILY
clonazepam 0.25 mg Tablet,Disintegrating
0.25 mg PO BIDPRN PRN (Reason: anxiety)
Eliquis 5 mg tablet
5 mg PO BID
Referrals:
Odalys Wolfe CRNP [Family Provider, Family Practice]
Interventions
Interventions:
*Risk Screen - Suicide Last Done: 06/25/25 18:30
*General Assessment Last Done: 06/25/25 18:30
*Neglect/Abuse Screening Last Done: 06/25/25 18:30
*ED COVID-19 Vaccine History Last Done: 06/25/25 18:30
*ED Influenza Vaccine History Last Done: 06/25/25 18:30
ED- Cardiac Assessment Last Done: 06/25/25 20:05
ED- Pulmonary Assessment Last Done: 06/25/25 20:05
ED-Peripheral Vascular Assessment Last Done: 06/25/25 20:08
ED-Skin Assessment Last Done: 06/25/25 20:05
Discharge Date and Time
Print Language: HONG KONGER
[2025-06-25 21:19] LABS: Hematocrit 45.8 % (37.0-47.0); Hemoglobin 15.0 g/dL (12.0-16.0); Mean Corp Hgb Conc. 32.8 g/dL (33.0-37.0); Mean Corpuscular Volume 89.6 fL (81.0-99.0); Nucleated Red Blood Cells % 0 %; Platelet Count 222 10^3/uL (130-400); Red Cell Dist. Width 12.6 % (11.5-14.5)
[2025-06-25 21:30] LABS: INR 0.98; PT 13.5 Sec (11.4-14.6)
[2025-06-25 21:31] LABS: APTT 31.3 Sec (23.4-35.0)
[2025-06-25 21:35] LABS: ALT (SGPT) 23 U/L (0-35); AST (SGOT) 25 U/L (14-36); Albumin 4.7 g/dl (3.5-5.0); Alkaline Phosphatase 77 U/L (38-126); Blood Urea Nitrogen 24 mg/dl (7-17); Calcium 10.0 mg/dl (8.4-10.2); Carbon Dioxide 31 mmol/L (22-30); Chloride 102 mmol/L (98-107); Glucose 107 mg/dl (70-99); Potassium 3.4 mmol/L (3.5-5.1); Sodium 137 mmol/L (135-145); Total Protein 7.7 g/dl (6.3-8.2); eGFR > 60.00
[2025-06-25] MEDS: HEPARIN 25000 UNITS/250 ML IV (22:18)
[2025-06-25] MEDS: HEPARIN 6600 UNITS IV (22:20)
--- NOTE | 2025-06-25 22:23 | HPS.HSE ---
Family Physician
-
Family Physician: Odalys Wolfe
Chief Complaint
-
LLE Pain / swelling
History of Present Illness
Patient is a 60y F with PMH significant for DVT / PE who presents to ED complaining of pain and swelling in the LLE for the past 2-3 days. Patient reports some chronic edema on LLE from prior DVT. Swelling has been increased from baseline and
patient has noted pain behind the L knee / L posterior thigh. Patient is on Eliquis for prior DVT / PE and denies any missed doses, etc.
Patient denies any recent travel, trauma / injury, etc.
She has no chest pain / SOB.
Medical History
Past Medical History
Past Medical History: Reports Hypercholesterolemia and Psychiatric (anxiety/ depression on clonazepam and sertraline )
Past Surgical History: Reports Appendectomy and Gynocological
Social History
Tobacco: Former Smoker
Alcohol: Occasional
Family History
Family History: Not pertinent
Allergies / Home Medications
Allergies reflects when Allergies were last updated in [facility].
Home Medications with original date entered in [facility]
Allergy/Medication List:
Allergies
Allergy/AdvReac Type Severity Reaction Status Date / Time
No Known Allergies Allergy Verified 06/25/25 18:31
Home Medications
sertraline 100 mg tablet 150 mg PO HS Mental Health/Anxiety 07/27/15
acetaminophen 325 mg tablet (Tylenol) 650 mg PO Q6HPRN PRN mild pain 02/24/25
clonazepam 0.25 mg disintegrating tablet 0.25 mg PO BIDPRN PRN anxiety 02/24/25
digestive enzymes 1 cap PO AC Supplement 02/24/25
pantoprazole 20 mg tablet,delayed release (Protonix) 20 mg PO DAILY GERD 02/24/25
apixaban 5 mg tablet (Eliquis) 5 mg PO BID Blood Clot Prevention/Tx 06/25/25
Review of Systems
-
History Source: Patient
A 12 point ROS was completed and negative except as noted: Yes
Constitutional: Denies Fever or Chills
Respiratory: Denies Cough or Trouble Breathing
Cardiac: Denies Chest Pain or Palpitations
Abdomen/GI: Denies Abdominal Pain, Nausea, Vomiting or Diarrhea
: Denies Dysuria, Flank Pain or Bleeding
Musculoskeletal: Reports Joint Pain, Joint Swelling, Muscle Pain and Edema
Neurological: Denies Dizzy or Headache
Psych: Denies Depression or Anxiety
Physical Exam
Vital Signs
Vital Signs
Temp Pulse Resp BP Pulse Ox
98.5 F 76 18 132/73 99
06/25/25 18:29 06/25/25 18:29 06/25/25 18:29 06/25/25 18:29 06/25/25 19:53
Physical Exam
General: Other (60y F in no acute distress.)
HEENT: Moist mucous membranes
Respiratory: Clear; No Wheezes, Rales or Rhonchi
Cardiac: S1/S2 and Regular Rhythm; No Murmur
GI: Soft, Non Tender, Non Distended and Normal Bowel Sounds
Musculoskeletal: No Clubbing, No Cyanosis and Other (2-3+ pitting edema of the LLE with tenderness posterior thigh / knee.)
Neuro: AO x 3
Laboratory Results
-
06/25/25 20:53
06/25/25 20:53
Laboratory Results
PT 13.5 Sec (11.4-14.6) 06/25/25 20:53
INR 0.98 06/25/25 20:53
APTT Cancelled 06/25/25 21:30
Total Bilirubin 0.5 mg/dl (0.2-1.3) 06/25/25 20:53
AST 25 U/L (14-36) 06/25/25 20:53
ALT 23 U/L (0-35) 06/25/25 20:53
Alkaline Phosphatase 77 U/L (38-126) 06/25/25 20:53
Impression/Plan
-
A/P: Patient is a 60y F with PMH significant for prior DVT / PE on Eliquis who presents to ED complaining of pain and swelling in the LLE.
Acute LLE DVT
History of DVT / PE
- Admit for further evaluation and treatment.
- Apparent Eliquis failure with no new trigger and no missed doses, etc.
- IV heparin started in the ED.
- Hematology evaluation for additional recommendations.
- CT pelvis was done during prior visit to evaluate for anatomic etiologies / May-Thurner / etc - this was unremarkable.
- Hypercoagulable work-up was unremarkable at the time of her initial DVT 20+ years ago.
Anxiety / Depression
- Stable. Continue current medications.
Code Status: Full
[2025-06-25] MEDS: ZOLOFT 150 MG PO (23:02)
[2025-06-25 23:04] VITALS: BP 120/72
[2025-06-26 00:05] VITALS: BP 121/67; BMI 29.0
--- NOTE | 2025-06-26 00:19 | PTCARENOTE ---
Pt. was admitted through E.D., AAO x 3, Heparin gtt infusing, vs stable, call puga within reach.
[2025-06-26 05:17] LABS: Hematocrit 41.3 % (37.0-47.0); Hemoglobin 13.8 g/dL (12.0-16.0); Mean Corp Hgb Conc. 33.4 g/dL (33.0-37.0); Mean Corpuscular Volume 88.2 fL (81.0-99.0); Platelet Count 180 10^3/uL (130-400); Red Cell Dist. Width 12.5 % (11.5-14.5)
[2025-06-26 05:40] LABS: APTT > 200 Sec (23.4-35.0)
[2025-06-26 05:55] LABS: Blood Urea Nitrogen 22 mg/dl (7-17); Calcium 9.5 mg/dl (8.4-10.2); Carbon Dioxide 26 mmol/L (22-30); Chloride 108 mmol/L (98-107); Estimated Creatinine Clearance 104 ml/min; Glucose 104 mg/dl (70-99); Potassium 3.7 mmol/L (3.5-5.1); Sodium 138 mmol/L (135-145); eGFR > 60.00
[2025-06-26 07:25] VITALS: BP 115/76
[2025-06-26] MEDS: PROTONIX 20 MG PO (09:22)
--- NOTE | 2025-06-26 10:39 | W.PN.HOSP.TC ---
Today's Communication/Plan
-
Hematology Oncology consult
Continue heparin
Assessment / Plan
Assessment / Plan
ASSESSMENT:
A 60y F with PMH significant for DVT and pulmonary embolism who presents to ED with left progressive lower extremity pain and swelling x3 days. She has chronic edema at baseline from prior DVT.� She denies shortness of breath or chest pain. She
states she has not missed an Eliquis dose, and has been compliant to it. No recent travel/surgery. No trauma.
PLAN:
# Acute lower left extremity DVT
# History of DVT/pulmonary embolism
Patient states she has been compliant to Eliquis, no missed doses
Continue IV heparin
Hematology oncology consulted.
Hypercoagulable workup was unremarkable 20+ years ago (at the time of first DVT)
No CYP3A inhibiting drugs that could cause Eliquis failure
Monitor for shortness of breath, chest pain, hypoxia
# Anxiety
# Depression
Stable, continue current medications.
Full code
Heparin
Anticipated Discharge: 24 - 48 hours
Subjective/Interval History
-
Date of Service: June 26, 2025
Evaluated at bedside this morning. Patient her leg pain is slightly decreased from yesterday. No new complaints.
Objective Data
-
Labs:
Laboratory Results
06/26/25 06/26/25
04:31 13:40
WBC 5.3
Hgb 13.8
Hct 41.3
Plt Count 180
APTT > 200 H* Pending
Sodium 138
Potassium 3.7
Chloride 108 H
Carbon Dioxide 26
BUN 22 H
Creatinine 0.6
Glucose 104 H
Calcium 9.5
Vital Signs:
Vital Signs
Temp Pulse Resp BP Pulse Ox
98.8 F 69 18 115/76 95
06/26/25 07:25 06/26/25 07:25 06/26/25 07:25 06/26/25 07:25 06/26/25 07:25
I&O
06/25/25 06/26/25 06/27/25
06:59 06:59 06:59
Intake Total 0 / 0
Output Total 350 / 350
Balance -350 / -350
Review of Systems
-
History Source: Patient
Constitutional: Reports No Symptoms
EENT: Reports No Symptoms Reported
Respiratory: Reports No Symptoms
Cardiac: Reports No Symptoms
Abdomen/GI: Reports No Symptoms
Breast: Reports No Symptoms
Genitourinary: Reports No Symptoms
Musculoskeletal: Reports Other (Leg pain)
Skin: Reports No Symptoms
Neuro: Reports No Symptoms
Endocrine: Reports No Symptoms
Hematologic / Lymphatic: Reports No Symptoms
Allergy / Immunology: Reports No Symptoms
Physical Exam
-
General: Well Developed, Well Nourished, No Apparent Distress, Comfortable and Conversant
HEENT: Normocephalic, Atraumatic, Moist Mucous Membranes and Anicteric
Respiratory: Clear to Auscultation
Cardiac: Regular Rhythm and S1/S2
GI: Soft, Nontender, Nondistended and Normal Bowel Sounds
Musculoskeletal: No Clubbing, No Cyanosis, Edema, Right Lower Extrem and Edema, Left Lower Extrem (L>R)
Neuro: Awake, AO x 3 and Nonfocal/Grossly Intact
Psych: Calm and Intact Judgement/Insight
Data Reviewed
-
Medical Tests (Nuc Med, Echo etc): Report Reviewed by me, Discussed with Physician and Discussed with Patient
Labs: Labs Reviewed by me, Discussed with Physician and Discussed with Patient
--- NOTE | 2025-06-26 12:29 | CON.ONC ---
Documented by User: Sharon Ramos MD, Resident 06/26/25 13:55
Consultation
-
Date Consultation Requested: 06/25/25
Date Consultation Performed: 06/26/25
Requesting Provider: Henry Nicolas DO
Performing Provider: Roshan Pittman DO; Rachel, Sharon Pascual MD
Reason for Consultation: Eliquis failure?
Impression
Impression
Recurrent/Persistent Left Lower Extremity DVT
Possible anticoagulation (Eliquis) failure
Plan
Plan
Currently still unsure whether current DVT observed this admission is the new or the same DVT observed from February with remodeling. Will await further studies to confirm.
-Check D-Dimer, cardiolipin panel, [id number] panel
-Recommend transition to Lovenox if there is indeed a new clot. May also eventually switch to Coumadin with Lovenox bridging.
-Follow up with Hematology as outpatient. The patient has an appointment with Dr. Shields in July.
Patient History
History of Present Illness
Ms. Pfeiffer is a 60 year old female with past medical history of DVT and Saddle PE presenting with left leg pain.
>20 years prior to consult, the patient sprained her left ankle, prompting period of immobility. She reportedly developed DVT and PE, and was placed on Coumadin. Further work up showed no significant abnormalities, thus Coumadin discontinued and she
placed on aspirin, which was eventually also discontinued due to stomach issues and concern for peptic ulcer development.
Back in December, she started experiencing pain in the left popliteal region extending to the posterior thigh described as gradual, intermittent, 'pulling' sensation that worsen with specific position and walking. She got a cortisone shot with complete
resolution. A month after, she started experiencing shortness of breath, and thus admitted in [facility] where acute saddle pulmonary embolism was found. Nonocclusive thrombus in the left common femoral, femoral and popliteal veins and occlusive thrombus
in the left peroneal and posterior tibial veins also observed on vascular ultrasound. The patient was discharged on Eliquis.
She has been compliant with her Eliquis since then. She has a follow up with Dr. Shields in July.
A few days prior to consult, she started experiencing the same quality and location of left leg pain again. She initially wanted to have a cortisone shot in her left knee, but was advised to seek consult first due to prior history of DVT. She went
to the ER where peripheral vascular ultrasound found acute nonocclusive deep venous thrombosis in the left femoral and peroneal veins, possible chronic nonocclusive deep venous thrombosis in left popliteal vein and nonocclusive thrombus in the left
saphenofemoral venous junction.
Past-Medical/Surgical History
DVT
Saddle PE
Depression
Vitreous hemorrage of right eye
Osteoporosis
Patient Medication
�Medication �Instructions �Recorded �Confirmed �Last Taken �Type
sertraline 100 mg tablet 150 mg PO HS Mental Health/Anxiety 07/27/15 06/25/25 06/24/25 History
acetaminophen 325 mg tablet 650 mg PO Q6HPRN PRN mild pain 02/24/25 06/25/25 06/25/25 History
(Tylenol)
clonazepam 0.25 mg disintegrating 0.25 mg PO BIDPRN PRN anxiety 02/24/25 06/25/25 02/24/25 History
tablet
digestive enzymes 1 cap PO AC Supplement 02/24/25 06/25/25 06/25/25 History
pantoprazole 20 mg tablet,delayed 20 mg PO DAILY GERD 02/24/25 06/25/25 06/25/25 History
release (Protonix)
apixaban 5 mg tablet (Eliquis) 5 mg PO BID Blood Clot 06/25/25 06/25/25 06/25/25 History
Prevention/Tx
Active Medications
Generic Name Dose Route Start Last Admin
Trade Name Freq PRN Reason Stop Dose Admin
Acetaminophen 650 mg 06/25/25 23:56
Acetaminophen 325 Mg Tablet PO 07/23/25 23:55
Q4HPRN PRN
Mild Pain / Temp > 101
Clonazepam 0.25 mg 06/25/25 23:56
Clonazepam 0.25 Mg Dose PO
BIDPRN PRN
anxiety
Heparin Sodium 6,600 units 06/25/25 22:03
Heparin 80 Units/Kg Iv Rebolus IV 07/23/25 22:02
PRN PRN
PTT < OR = 64 seconds
Heparin Sodium 3,300 units 06/25/25 22:04
Heparin 40 Units/Kg Iv Rebolus IV 07/23/25 22:03
PRN PRN
PTT = 64.1 to 72.9 seconds
Heparin Sodium 25,000 units in 250 mls @ 0 mls/hr 06/25/25 21:30 06/25/25 22:18
Heparin 18417 Units/250 Ml IV 250 mls
PER PROTOCOL TRAM Administration
Protocol
Per Protocol
Pantoprazole Sodium 20 mg 06/26/25 08:00 06/26/25 09:22
Pantoprazole 20 Mg Delayed Release Tablet PO 07/24/25 07:59 20 mg
DAILY TRAM Administration
Sertraline HCl 150 mg 06/26/25 22:00
Sertraline 100 Mg Tablet PO 07/24/25 21:59
HS TRAM
Sodium Chloride 0 flush 06/26/25 01:00
Sodium Chloride 0.9% (Flush) Syringe IV 07/24/25 00:59
PER PROTOCOL TRAM
Review of Systems
-
History Source: Patient
Constitutional: Reports No Symptoms
EENT: Reports No Symptoms
Respiratory: Denies Cough or Trouble Breathing
Cardiac: Reports No Symptoms
GI: Reports No Symptoms
: Reports No Symptoms
Musculoskeletal: Reports Other (pain in Left popliteal area extending to posterior thigh- worsens with position changes and walking, no change with leg hanging off bed.); Denies Muscle Weakness
Skin: Reports No Symptoms
Neuro: Reports No Symptoms
Hematologic/Lymphatic: Reports No Symptoms
Psych: Reports No Symptoms
Physical Exam
-
General: Well Developed, No Apparent Distress and Conversant
Cardiology: Normal Sinus Rhythm, S1 and S2
Pulmonary: Clear
GI: Soft and Normal Bowel Sounds
Musculoskeletal: No Edema, Edema, Left Lower Extrem (+1), Normal Gait & Station (antalgic gait), No Atrophy and Other (No swelling, erythema noted)
Extremities: Pulses Present
Skin: Warm
Psych: Calm
Labs
Lab Results
WBC 5.3 10^3/uL (4.8-10.8) 06/26/25 04:31
RBC 4.68 10^6/uL (4.20-5.40) 06/26/25 04:31
Hgb 13.8 g/dL (12.0-16.0) 06/26/25 04:31
Hct 41.3 % (37.0-47.0) 06/26/25 04:31
MCV 88.2 fL (81.0-99.0) 06/26/25 04:31
MCH 29.5 pg (27.0-31.0) 06/26/25 04:31
MCHC 33.4 g/dL (33.0-37.0) 06/26/25 04:31
RDW 12.5 % (11.5-14.5) 06/26/25 04:31
Plt Count 180 10^3/uL (130-400) 06/26/25 04:31
MPV 9.4 fL (7.4-10.4) 06/26/25 04:31
Abs Immat Gran (auto) 0.0 10^3/uL (0-0.05) 06/25/25 20:53
Absolute Neuts (auto) 3.7 10^3/uL (1.4-6.5) 06/25/25 20:53
Absolute Lymphs (auto) 1.9 10^3/uL (1.2-3.4) 06/25/25 20:53
Absolute Monos (auto) 0.5 10^3/uL (0.1-0.6) 06/25/25 20:53
Absolute Eos (auto) 0.1 10^3/uL (0-0.7) 06/25/25 20:53
Absolute Basos (auto) 0.0 10^3/uL (0-0.2) 06/25/25 20:53
Immature Gran % 0.3 % (0-0.5) 06/25/25 20:53
Neutrophils % 59.6 % (42.2-75.2) 06/25/25 20:53
Lymphocytes % 29.8 % (20.5-51.1) 06/25/25 20:53
Monocytes % 7.9 % (1.7-9.3) 06/25/25 20:53
Eosinophils % 1.8 % (0-6) 06/25/25 20:53
Basophils % 0.6 % (0-2) 06/25/25 20:53
Creatinine 0.6 mg/dL (0.6-1.0) 06/26/25 04:31
Vital Signs
Vital Signs
Temp Pulse Resp BP Pulse Ox
98.8 F 69 18 115/76 95
06/26/25 07:25 06/26/25 07:25 06/26/25 07:25 06/26/25 07:25 06/26/25 07:25

Documented by User: Roshan Pittman DO 06/26/25 14:00
Plan
Plan
Currently still unsure whether current DVT observed this admission is the new or the same DVT observed from February with remodeling. Will await further studies to confirm.
-Check D-Dimer, lupus anticoagulant, anticardiolipin antibody and [id number]
-Recommend transition to Lovenox if there is indeed a new clot. May also eventually switch to Coumadin with Lovenox bridging.
-Follow up with Hematology as outpatient. The patient has an appointment with Dr. Shields in July.
--- NOTE | 2025-06-26 14:13 | CM ---
IA completed. Independent in ADLs and IADLs. Lives with in a 1 story home with 3 steps at the entrance to the home. DME: grab bars in the shower and a raised toilet seat. No hx of HH, SNF or home O2.No insecurities identified. Confirmed PCP,
Rx, insurance and drug coverage.
Continues with pain.IV heparin in place.
PCP: Odalys Wolfe
Rx: [facility]/ [facility]o
Plan: Home no needs.
[2025-06-26 14:26] LABS: APTT 170.2 Sec (23.4-35.0)
[2025-06-26 15:26] VITALS: BP 112/68
[2025-06-26] MEDS: ZOLOFT 150 MG PO (20:09)
[2025-06-26] MEDS: HEPARIN 25000 UNITS/250 ML IV (20:17)
[2025-06-26 23:38] VITALS: BP 106/67
[2025-06-27] LABS: APTT 103.8 Sec (23.4-35.0)
[2025-06-27 06:00] VITALS: BMI 29.0
[2025-06-27 06:45] LABS: Hematocrit 45.4 % (37.0-47.0); Hemoglobin 14.6 g/dL (12.0-16.0); Mean Corp Hgb Conc. 32.2 g/dL (33.0-37.0); Mean Corpuscular Volume 91.7 fL (81.0-99.0); Platelet Count 187 10^3/uL (130-400); Red Cell Dist. Width 12.7 % (11.5-14.5)
[2025-06-27 06:54] LABS: APTT 91.1 Sec (23.4-35.0)
[2025-06-27 06:55] LABS: D-Dimer 0.32 ug/mlFEU (0.00-0.50)
[2025-06-27 07:17] VITALS: BP 124/70
[2025-06-27] MEDS: TYLENOL 650 MG PO (07:29)
[2025-06-27] MEDS: PROTONIX 20 MG PO (07:29)
--- NOTE | 2025-06-27 07:40 | W.PN.HOSP.TC ---
Today's Communication/Plan
-
DC pending Ortho/steroid injection to knee
Patient to resume Eliquis upon discharge
Assessment / Plan
Assessment / Plan
ASSESSMENT:
A 60 year old female with PMH significant for DVT and pulmonary embolism who presents to ED with left progressive lower extremity pain and swelling x3 days. She has chronic edema at baseline from prior DVT.� She denies shortness of breath or chest
pain. She states she has not missed an Eliquis dose, and has been compliant to it. No recent travel/surgery. No trauma. Has been getting steroid injections for knee pain.
PLAN:
# Chronic lower left extremity DVT
# History of DVT/pulmonary embolism
Patient states she has been compliant to Eliquis, no missed doses
Continue IV heparin
Hematology oncology consulted.
Hypercoagulable workup was unremarkable 20+ years ago (at the time of first DVT)
No CYP3A inhibiting drugs that could cause Eliquis failure
Monitor for shortness of breath, chest pain, hypoxia
D-dimer negative, indicating no acute DVT but rather old DVT with remodeling. Other hematological work up pending.
Follows with [place]; appointment in July with Dr. Shields
Potential steroid injection while inpatient- Dr. Neville reaching out to Ortho; if unable, patient to get it on 07/02 outpatient.
# Anxiety
# Depression
Stable
Continue current medications.
Code status: Full code
DVT prophylaxis: Heparin
Anticipated Discharge: Today
Subjective/Interval History
-
Date of Service: June 27, 2025
Patient evaluated at bedside this morning. New new complaints, but still has left leg pain. No shortness of breath or chest pain. No other complaints.
Objective Data
-
Labs:
Laboratory Results
06/26/25 06/27/25
22:54 06:22
WBC 5.1
Hgb 14.6
Hct 45.4
Plt Count 187
APTT 103.8 H 91.1 H
Vital Signs:
Vital Signs
Temp Pulse Resp BP Pulse Ox
97.7 F 55 20 106/67 98
06/26/25 23:38 06/26/25 23:38 06/26/25 23:38 06/26/25 23:38 06/26/25 23:38
I&O
06/26/25 06/27/25 06/28/25
06:59 06:59 06:59
Intake Total 0 / 0 1502 / 1502
Output Total 350 / 350
Balance -350 / -350 1502 / 1502
Review of Systems
-
History Source: Patient
Constitutional: Reports No Symptoms
EENT: Reports No Symptoms Reported
Respiratory: Reports No Symptoms
Cardiac: Reports No Symptoms
Abdomen/GI: Reports No Symptoms
Breast: Reports No Symptoms
Genitourinary: Reports No Symptoms
Musculoskeletal: Reports Other (Left knee/ leg pain)
Skin: Reports No Symptoms
Neuro: Reports No Symptoms
Endocrine: Reports No Symptoms
Hematologic / Lymphatic: Reports No Symptoms
Allergy / Immunology: Reports No Symptoms
Physical Exam
-
General: Well Developed, Well Nourished, No Apparent Distress, Comfortable and Conversant
HEENT: Normocephalic, Atraumatic and Moist Mucous Membranes
Respiratory: Clear to Auscultation
Cardiac: Regular Rhythm and S1/S2
GI: Soft, Nontender, Nondistended and Normal Bowel Sounds
Musculoskeletal: No Clubbing, No Cyanosis, Edema, Right Lower Extrem and Edema, Left Lower Extrem
Skin: Warm
Neuro: Awake and AO x 3
Psych: Calm and Intact Judgement/Insight
Data Reviewed
-
Labs: Labs Reviewed by me, Discussed with Physician and Discussed with Patient
Old Records: Reviewed
--- NOTE | 2025-06-27 14:27 | CM ---
Pt discharged today.
Plan: Home with no needs
--- NOTE | 2025-06-27 14:33 | W.PN.ONC ---
Documented by User: Sharon Ramos MD, Resident 06/27/25 16:35
Today's Communication / Plan
-
-
Impression
Impression
Recurrent/Persistent Left Lower Extremity DVT
Possible anticoagulation (Eliquis) failure
Plan
Plan
D dimer negative, clot observed likely from remodeling rather than new clot.
-Whether or not to temporary hold of Eliquis for Medrol shot will be at the discretion of the patient's Orthopedic doctor. Patient has been advised. She spoke to her Orthopedic doctor and was told that there is no need, but if need arises, the
patient follows Dr. Shields and may call the office for assistance.
-D- dimer negative, antiphospholipid studies pending
-Resume Eliquis as outpatient.
-Follow up with Hematology as outpatient. The patient has an appointment with Dr. Shields in July.
Subjective/Objective
Subjective/Objective
The patient's left leg pain is the same as before. She denies numbness, swelling, and redness at the site. She denies palpitation and SOB.
Vital Signs:
Vital Signs
Temp Pulse Resp BP Pulse Ox
98.3 F 88 18 124/70 98
06/27/25 07:17 06/27/25 07:17 06/27/25 07:17 06/27/25 07:17 06/27/25 08:50
Lab Results:
Laboratory Data
WBC 5.1 10^3/uL (4.8-10.8) 06/27/25 06:22
Hgb 14.6 g/dL (12.0-16.0) 06/27/25 06:22
Plt Count 187 10^3/uL (130-400) 06/27/25 06:22
PT 13.5 Sec (11.4-14.6) 06/25/25 20:53
INR 0.98 06/25/25 20:53
APTT 91.1 Sec (23.4-35.0) H 06/27/25 06:22
eGFR > 60.00 06/26/25 04:31
Orders
Orders
Orders From Last 24 Hours
06/27/25 06:22
Antiphospholipid Antibody [Phospholipid Antibody Panel] IN AM
D-Dimer IN AM

Documented by User: Jesus Garcia MD 06/28/25 06:09
Plan
Plan
D dimer negative, clot observed likely from remodeling rather than new clot.
-Whether or not to temporary hold of Eliquis for Medrol shot will be at the discretion of the patient's Orthopedic doctor. Patient has been advised. She spoke to her Orthopedic doctor and was told that there is no need, but if need arises, the
patient follows Dr. Shields and may call the office for assistance.
-D- dimer negative, antiphospholipid studies pending
-Resume Eliquis as outpatient.
-Follow up with Hematology as outpatient. The patient has an appointment with Dr. Shields in July.
Hematology Addendum:
Patient seen and evaluated and agree w/ BILLING ASSOCIATE note and plan as outlined
-d-dimer negative
-eliquis to be resumed
-await findings from [place] / phospholipid antibody testing - which would indicate a need to transition to coumadin
-f/u scheduled w/ Dr. Shields as outpt for continued management
[2025-06-27 15:09] VITALS: BP 125/65
[2025-06-27] MEDS: KLONOPIN 0.25 MG PO (15:13)
--- NOTE | 2025-06-27 18:03 | W.DCSUMMARY ---
Discharge Summary
Discharge Data
Date of Admission: 06/25/25
Date of Discharge: 06/27/25
-
Pending Results: Yes
Additional Pending Results:
Hypercoagulability work up
Hospital Course
Discharging Physician : Dr. Isaiah Neville and Dr. Jordan Rice
Disposition : Home
Principal Discharge diagnosis : Chronic left lower extremity DVT
Chronic Discharge diagnosis : History of DVT, History of pulmonary embolism, Anxiety, Depression
Hospital Course : A 60 year old female with a PMH of DVT and pulmonary embolism presented tot he ED with progressive left lower extremity pain and swelling for 3 days prior to arrival to hospital. She has chronic lower extremity edema at baseline
due to prior DVT. The patient denied dyspnea, chest pain, recent travel/surgery/trauma. She reported full compliance with her Eliquis and has not missed any doses. She has also been getting steroid injections for knee pain. During admission,
hematology-oncology was consulted. Patient had a prior hypercoagulable workup over 20 years ago. D-dimer testing during admission was negative, suggesting no new acute DVT but rather chronic DVT with likely remodeling. Other hematologic workup for
hypercoagulable workup remains pending. The patient was continued on IV heparin and monitored closely for dsypnea/chest pain/hypoxia.
She follows with [facility] and has an upcoming appointment with Dr. Shields in July. Patient is to follow up with them, as well as PCP and Ortho (for steroid injection on 07/02)
Important imaging findings :
US lower extremity 06/26/25: ACUTE NONOCCLUSIVE DEEP VENOUS THROMBOSIS in the LEFT FEMORAL VEIN.
Discharge Plan
-
Patient Disposition: Home (Routine Discharge)
Discharge Diagnosis/Procedures: Chronic left lower extremity DVT
History of DVT/pulmonary embolism
Condition: Good
Diet: As tolerated
Activity: As tolerated
Driving Restrictions: As prior to admission
Stand Alone Forms: Return to Work
Referrals:
Orthopaedic,Provider [Non-Admitting Privileges] - in one week
Odalys Wolfe CRNP [Family Provider, Family Practice] - in less than 1 week
Prescriptions:
Continued
sertraline 100 MG tablet
150 mg PO HS
digestive enzymes Capsule
1 cap PO AC
acetaminophen [Tylenol] 325 mg Tablet
650 mg PO Q6HPRN PRN (Reason: mild pain)
pantoprazole [Protonix] 20 mg Tablet,Delayed Release (Dr/Ec)
20 mg PO DAILY
clonazepam 0.25 mg Tablet,Disintegrating
0.25 mg PO BIDPRN PRN (Reason: anxiety)
Eliquis 5 mg tablet
5 mg PO BID
Discharge Orders:
Discharge Patient (As Directed); Ordered 06/27/25
Ordered By: Jordan Rice
Discharge Date and Time
Discharge Date/Time: 06/27/25 16:18
Print Language: CZECH
[2025-06-30 17:28] LABS: Beta-2-Glycoprotein I Ab. IgA <10 SAU (<=20); Beta-2-Glycoprotein I Ab. IgG <10 SGU (<=20); Beta-2-Glycoprotein I Ab. IgM <10 SMU (<=20)
[2025-07-01 01:27] LABS: Phosphatidylserine Ab, IgA 2 APS (0-19); Phosphatidylserine Ab, IgG 0 GPS (0-15); Phosphatidylserine Ab, IgM 0 MPS (0-21)
== END 2025-06-27 16:18 | disposition home or self-care (01) | DRG 301 ==
LOC: 4 EAST ACU 22:49
PROVIDERS: Nurse Practitioner; ADMITTING PHYSICIAN Hospitalist; ATTENDING PHYSICIAN Internal Medicine; EMERGENCY PHYSICIAN Emergency Medicine; FAMILY PHYSICIAN Nurse Practitioner Family; OTHER PHYSICIAN Internal Medicine Hematology & Oncology
DX: I82.412 Acute embolism and thrombosis of left femoral vein (principal); I82.502 Chronic embolism and thrombosis of unspecified deep veins of left lower extremity; Z87.891 Personal history of nicotine dependence; F41.9 Anxiety disorder, unspecified; F32.A Depression, unspecified; Z79.01 Long term (current) use of anticoagulants; M19.90 Unspecified osteoarthritis, unspecified site
CPT/HCPCS: 80048; 80053; 85025; 85027; 85379; 85610; 85730; 86146; 86147; 86148; 93971; 99285